=== PATIENT | male | born 1935 | race Caucasian/White ===

== ENCOUNTER → 2019-03-11 | Outpatient (CLI) | payer MEDICARE ==
--- NOTE | 2019-03-11 10:30 | CT ---
EXAMINATION TYPE: CT sinus wo con DATE OF EXAM: 03/11/2019 COMPARISON: None HISTORY: 83-year-old male Chronic sinusitis CT DLP: 551.60 mGycm Automated exposure control for dose reduction was used. TECHNIQUE: Noncontrast axial views of the paranasal sinuses were obtained. Coronal reconstructions pe rformed. FINDINGS: PARANASAL SINUSES: Moderate to severe mucosal thickening right maxillary sinus with some frothy debris present dependent ly. Mild mucosal thickening throughout the frontal sinuses, ethmoid air cells, and bilateral sphenoid sin uses. 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 There is no destruction of the osseous rodrigues of the paranasal sinuses. THE NASAL CAVITY: The osteomeatal complexes are widely patent with prior medial maxillary antrectomies. Minimal undulation of the nasal septum towards the left. The imaged brain and orbits are normal in appearance. The visualized mastoid air cells and middle ear cavities are well pneumatized. Reformatted images confirm above findings. IMPRESSION: 1. Previous bilateral medial maxillary antrectomies. 2. 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 Some frothy dependent debris within current represent superimposed acute sinusitis. 3. Mild chronic conteh sinus disease with mucosal thickening throughout the remainder of the sinuses.
--- NOTE | 2019-03-13 18:42 | EEG ---
ELECTROENCEPHALOGRAM REPORT VNG REPORT: REQUEST PHYSICIAN: Dr. Hardin. DATE OF SERVICE: 03/11/2019 VIDEO ELECTRONYSTAGMOGRAPHIC REPORT: AGE: 83 VNG INDICATIONS: VNG indications: Vertigo and dizziness. ENG FINDINGS: SPONTANEOUS NYSTAGMUS: SACCADES: Saccades shows intact peak velocities, accuracies and latencies. GAZE TEST: Gaze with fixation shows no nystagmus in any of the directions of gaze including centrally with vision denied. SINUSOIDAL TRACKING: Tracking shows borderline to mild break-ups of a consistent nature. OKN TEST: Optokinetic nystagmus shows borderline asymmetry. TAMMI-HALLPIKE TEST: Republic-Hallpike maneuvers were not performed due to limited mobility. POSITION TEST: Static position testing in seated, supine, head right and head left showed no nystagmus either with eyes opened or vision denied. CALORIC TEST: Caloric testing shows no caloric weakness. IMPRESSION: Mild break ups in tracking and a borderline asymmetry of optokinetic nystagmus are features suggesting mild central nervous system dysfunction. No evidence for vestibulopathy or caloric weakness. Tammi-Hallpike maneuvers not performed and so benign positional vertigo not excluded. No nystagmus encountered during the exam. MMODL / IJN: [id number] /
== END | disposition home or self-care (01) ==
LOC: RADCTMAIN 08:21
PROVIDERS: ATTEND Otolaryngology
DX: J32.0 Chronic maxillary sinusitis (principal); J01.90 Acute sinusitis, unspecified; J34.89 Other specified disorders of nose and nasal sinuses; R42 Dizziness and giddiness
CPT/HCPCS: 70486; 92537; 92540

== ENCOUNTER → 2019-04-01 | Outpatient (CLI) | payer MEDICARE ==
--- NOTE | 2019-04-01 19:51 | CONS ---
CONSULTATION DATE OF SERVICE: 04/01/2019. 83-year-old gentleman who has been evaluated in [facility] for possible obstructive sleep apnea-hypopnea syndrome. HISTORY OF PRESENT ILLNESS SLEEP WAKE EVALUATION: SLEEP SCHEDULE: Usual sleep schedule from around midnight until around 9 or 10 am. Sometimes he has problems with falling asleep, although no TV in bedroom. He sleeps usually on the side position. According to his , he snores and he wakes up from sleep 3 times with nocturia, dry mouth, heartburn. In the morning, patient wakes up tired, has difficulties to pay attention, falling asleep during the day, worry about his sleep, has problems with concentration, irritability, anxiety. Calypso Sleepiness Scale is 9. PAST MEDICAL HISTORY: Positive for atrial fibrillation, hypertension, hyperlipidemia, basal cell carcinoma of the nose. MEDICATIONS: Eliquis, Lipitor, lisinopril, metoprolol. SOCIAL HISTORY: Positive for occasional smoking cigars. Alcohol consumption none at the present time. PAST SURGICAL HISTORY: Status post basal cell carcinoma removed from skin of the nose recently. REVIEW OF SYSTEMS: Awakenings from sleep, tiredness and sleepiness during the day. FAMILY HISTORY: Arthritis, sinus problems, lung problems, sleep apnea, snoring, headaches, cancer, insomnia, ulcers, acid reflux. PHYSICAL EXAM: A gentleman without distress. BP 136/79, HR 56, RR 16, height 5 feet 7 inches, weight 218 pounds. Body mass index 33.6, temperature 98.0, oxygen saturation at room air 94%. Oropharynx extremely low position of soft palate. Mallampati 4. Restriction of nasal breathing. HEART: S1, S2, irregular. Extremities 1+ ankle edema. IMPRESSION: 1. Snoring, multiple awakenings from sleep with nocturia, extremely low position of soft palate. Obstructive sleep apnea-hypopnea syndrome. 2. Mild obesity BMI 33.6. 3. Hypertension. 4. History of atrial fibrillation. 5. Hyperlipidemia. 6. History of basal cell CA removed from the nose recently. 7. History of benign prostatic hypertrophy. PLAN: 1. Polysomnography for evaluation of patient's breathing during sleep. 2. CPAP/BiPAP titration if sleep study confirms obstructive sleep apnea-hypopnea syndrome. 3. Preferable position during sleep on the side. 4. No driving if patient feels any sleepiness. 5. I will see patient for follow up visit to explain results of testing and following plan. Thank you very much for referring this patient for consultation. Sincerely, Kunal Sharma MD, PhD, FAASM Diplomat of [place] [employer] [place] [employer] Blending Coordinator of [facility] [place] MMODL / ANITA: [id number] /
== END | disposition home or self-care (01) ==
LOC: SLEEP 13:33
PROVIDERS: ATTEND Internal Medicine
DX: G47.33 Obstructive sleep apnea (adult) (pediatric) (principal); E66.9 Obesity, unspecified; I10 Essential (primary) hypertension; E78.5 Hyperlipidemia, unspecified; R35.1 Nocturia; Z98.890 Other specified postprocedural states; Z86.79 Personal history of other diseases of the circulatory system; Z83.6 Family history of other diseases of the respiratory system; Z68.33 Body mass index [BMI] 33.0-33.9, adult; Z87.438 Personal history of other diseases of male genital organs; Z79.01 Long term (current) use of anticoagulants; Z79.899 Other long term (current) drug therapy
CPT/HCPCS: 99211

== ENCOUNTER → 2019-07-02 | Outpatient (CLI) | payer MEDICARE ==
--- NOTE | 2019-07-02 10:18 | MR ---
EXAMINATION TYPE: MR brain and iac wo/w con DATE OF EXAM: 07/02/2019 COMPARISON: CT 06/26/2013, 03/11/2019 HISTORY: Dizziness, Tinnitis, 30% Hearing loss bilat TECHNIQUE: Multiplanar, multisequence images of the brain and brainstem is performed without and with IV contras t, utilizing 10 mL intravenous Gadavist . Small iizog-cm-srix high-resolution images obtained through the internal auditory canals. FINDINGS: Diffusion weighted images demonstrate no evidence of a recent infarct or other diffusion ab normality. There is no extra-axial fluid. There is cortical atrophy. The ventricular system and cis ternal spaces are normal in size and appearance. Periventricular, subcortical and juxtacortical hyper intensities present on inversion recovery T2-weighted sequences. Pericallosal hyperintensity also pre sent with some minimal encephalomalacia noted in the centrum semiovale ovale on the right. Internal a uditory canals, cerebellopontine angles show no mass. Midline structures demonstrate normal morphology. The craniocervical junction appears within normal limits. Post contrast images demonstrate no abnormal enhancement. The dural venous sinuses appear pa tent. The visualized sinuses are remarkable for inflammatory change within the frontal sinus, maxilla ry sinuses, and the globes are intact. 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 IMPRESSION: Age-related changes of atrophy and chronic small vessel ischemia. Sinus disease. No evide nt mass along the internal auditory canals. Additional findings above.
== END | disposition home or self-care (01) ==
LOC: RADMRIMAIN 08:55
PROVIDERS: ATTEND Otolaryngology
DX: G31.1 Senile degeneration of brain, not elsewhere classified (principal); I67.82 Cerebral ischemia; J32.9 Chronic sinusitis, unspecified; H93.3X9 Disorders of unspecified acoustic nerve; H93.19 Tinnitus, unspecified ear
CPT/HCPCS: 70553; A9585

== ENCOUNTER 2020-07-09 01:08 | Emergency (ER) | payer MEDICARE ==
[2020-07-09 01:14] VITALS: BP 111/77; PULSE 87; RESP 16; TEMP 99
[2020-07-09 02:00] LABS: Basophils % (A) 0 %; Eosinophils # (A) 0.4 k/uL (0-0.7); Eosinophils % (A) 5 %; HCT 53.5 % (39.0-53.0); HGB 17.4 gm/dL (13.0-17.5); Lymphocytes # (A) 0.9 k/uL (1.0-4.8); Lymphocytes % (A) 12 %; MCH 32.4 pg (25.0-35.0); MCHC 32.5 g/dL (31.0-37.0); MCV 99.4 fL (80.0-100.0); Macrocytosis Slight; Mean Platelet Volume 9.6; Monocytes # (A) 0.4 k/uL (0-1.0); Monocytes % (A) 5 %; Neutrophils % (A) 77 %; Platelet Count 140 k/uL (150-450); RBC 5.38 m/uL (4.30-5.90); RDW 15.1 % (11.5-15.5); WBC 7.9 k/uL (3.8-10.6)
--- NOTE | 2020-07-09 02:07 | ED ---
Recheck HPI - General Chief Complaint: Recheck/Abnormal Lab/Rx Stated Complaint: Abnormal Labs Time Seen by Provider: 07/09/20 01:23 Source: patient Mode of arrival: ambulatory Limitations: no limitations - History of Present Illness Initial Comments: This patient is an 84-year-old man who presents to have his potassium checked. The patient had gone to the clinic yesterday at 10 AM and had labs taken as part of workup for pain with urination and also vertigo. He states that he received a call around midnight telling him that his potassium was 7 and that he needed to be checked at the emergency department. Patient states that he had otherwise been feeling okay. No weakness. No chest pain or dyspnea. No palpitations. MD Complaint: abnormal lab -: hour(s) Returns Today for: Called Because of Abnormal Lab/Test Symptoms Since Prior Visit: no new symptoms Context: called for abnormal lab result Associated Symptoms: none - Related Data Home Medications Medication Instructions Recorded Confirmed Antiarthritic Combination No.2 900 mg PO DAILY 06/05/14 08/12/17 [Glucosamine-Chondroitin] Cholecalciferol [Vitamin D3 (25 5,000 unit PO DAILY 06/05/14 08/12/17 Mcg = 1000 Iu)] Cyanocobalamin [Vitamin B-12] 500 mcg PO DAILY 06/05/14 08/12/17 [place]-3 Fatty Acids/Fish Oil [Fish 1 cap PO DAILY 06/05/14 08/12/17 Oil 1,000 mg Softgel] Doxazosin Mesylate [Cardura] 8 mg PO HS 01/24/17 08/12/17 Omeprazole [PriLOSEC] 40 mg PO DAILY 01/24/17 08/12/17 Previous Rx's Medication Instructions Recorded Apixaban [Eliquis] 5 mg PO BID tab 01/27/17 Atorvastatin [Lipitor] 80 mg PO DAILY tab 01/27/17 Diltiazem Oral [Cardizem*] 30 mg PO TID tab 01/27/17 Metoprolol Tartrate [Lopressor] 50 mg PO BID tab 01/27/17 Nitroglycerin Sl Tabs [Nitrostat] 0.4 mg SUBLINGUAL Q5M PRN tab 01/27/17 lisinopriL [Zestril] 5 mg PO DAILY tab 01/27/17 Allergies Allergy/AdvReac Type Severity Reaction Status Date / Time No Known Allergies Allergy Verified 07/09/20 01:15 Review of Systems ROS Statement: Those systems with pertinent positive or pertinent negative responses have been documented in the HPI. ROS Other: All systems not noted in ROS Statement are negative. Constitutional: Denies: fever, chills Eyes: Denies: vision change Respiratory: Denies: cough, dyspnea Cardiovascular: Denies: chest pain, palpitations, orthopnea Gastrointestinal: Denies: abdominal pain, vomiting, diarrhea Genitourinary: Reports: dysuria, hematuria. Denies: frequency, discharge, testicular pain, testicular mass Musculoskeletal: Denies: back pain Skin: Denies: rash Neurological: Reports: vertigo. Denies: headache, weakness, numbness Past Medical History Past Medical History: Atrial Fibrillation, GERD/Reflux, Hyperlipidemia, Hypertension, Osteoarthritis (OA), Prostate Disorder Additional Past Medical History / Comment(s): SKIN CA, pre-diabetes History of Any Multi-Drug Resistant Organisms: None Reported Past Surgical History: Cholecystectomy, Tonsillectomy Additional Past Surgical History / Comment(s): COLONOSCOPIES/POLYPECTOMY, TURP, CYSTOSCOPY FOR BLADDER CALCULUS REMOVAL, L INGUINAL HERNIA REPAIR, L FOOT FASCIOTOMY, ENDOSCOPIC SINUS SX, SKIN CANCER REMOVED FROM NOSE, BILATERAL CATARACT REMOVAL WITH LENS IMPLANTS. Past Anesthesia/Blood Transfusion Reactions: No Reported Reaction Past Psychological History: No Psychological Hx Reported Smoking Status: Former smoker Past Alcohol Use History: None Reported Past Drug Use History: None Reported - Past Family History Father Additional Family Medical History / Comment(s): FATHER AT THE AGE OF 75 YRS UNKNOWN CAUSE. FATHER HAD STOMACH ISSUES. Mother Family Medical History: Cancer Additional Family Medical History / Comment(s): MOTHER OF BREAST CANCER THAT METASTASIZED TO HER BONES AT THE AGE OF 80YRS. General Exam Limitations: no limitations General appearance: alert, in no apparent distress Head exam: Present: atraumatic, normocephalic Eye exam: Present: normal appearance. Absent: scleral icterus, conjunctival injection ENT exam: Present: normal oropharynx Respiratory exam: Present: normal lung sounds bilaterally. Absent: respiratory distress, wheezes, rales, rhonchi, stridor Cardiovascular Exam: Present: regular rate, normal rhythm, normal heart sounds. Absent: systolic murmur, diastolic murmur, rubs, gallop GI/Abdominal exam: Present: soft. Absent: distended, tenderness, guarding, rebound, rigid, mass Extremities exam: Present: normal inspection, normal capillary refill Neurological exam: Present: alert. Absent: motor sensory deficit Skin exam: Present: warm, dry, intact, normal color. Absent: rash Course Vital Signs 07/09/20 01:09 Temperature 99.0 F Pulse Rate 87 Respiratory 16 Rate Blood Pressure 111/77 O2 Sat by Pulse 93 L Oximetry Medical Decision Making - Lab Data Result diagrams: 07/09/20 01:50 07/09/20 01:50 Lab Results 07/09/20 07/09/20 Range/Units 01:50 01:50 WBC 7.9 (3.8-10.6) k/uL RBC 5.38 (4.30-5.90) m/uL Hgb 17.4 (13.0-17.5) gm/dL Hct 53.5 H (39.0-53.0) % MCV 99.4 (80.0-100.0) fL MCH 32.4 (25.0-35.0) pg MCHC 32.5 (31.0-37.0) g/dL RDW 15.1 (11.5-15.5) % Plt Count 140 L (150-450) k/uL MPV 9.6 Neutrophils % 77 % Lymphocytes % 12 % Monocytes % 5 % Eosinophils % 5 % Basophils % 0 % Neutrophils # 6.0 (1.3-7.7) k/uL Lymphocytes # 0.9 L (1.0-4.8) k/uL Monocytes # 0.4 (0-1.0) k/uL Eosinophils # 0.4 (0-0.7) k/uL Basophils # 0.0 (0-0.2) k/uL Macrocytosis Slight Sodium 136 L (137-145) mmol/L Potassium 4.3 (3.5-5.1) mmol/L Chloride 104 (98-107) mmol/L Carbon Dioxide 26 (22-30) mmol/L Anion Gap 6 mmol/L BUN 15 (9-20) mg/dL Creatinine 1.14 (0.66-1.25) mg/dL Est GFR (CKD-EPI)AfAm 68 (>60 ml/min/1.73 sqM) Est GFR (CKD-EPI)NonAf 59 (>60 ml/min/1.73 sqM) Glucose 112 H (74-99) mg/dL Calcium 9.4 (8.4-10.2) mg/dL Total Bilirubin 1.1 (0.2-1.3) mg/dL AST 38 (17-59) U/L ALT 44 (4-49) U/L Alkaline Phosphatase 92 (38-126) U/L Total Protein 6.6 (6.3-8.2) g/dL Albumin 3.6 (3.5-5.0) g/dL - EKG Data -: EKG Interpreted by Or EKG shows normal: intervals (Normal), QRS complexes (Left anterior fascicular block.) Rate: tachycardia (Rate approximately 119 bpm) Interpretation: other (Atrial fibrillation with RVR. Possible old septal infarct.) Disposition Clinical Impression: Feared condition not demonstrated Disposition: HOME SELF-CARE Condition: Good Instructions (If sedation given, give patient instructions): Hyperkalemia (ED) Is patient prescribed a controlled substance at d/c from ED?: No Referrals: Maryanne Henson MD [Primary Care Provider] - 1-2 days
[2020-07-09 02:15] LABS: Albumin 3.6 g/dL (3.5-5.0); Calcium 9.4 mg/dL (8.4-10.2); Potassium 4.3 mmol/L (3.5-5.1); Total Bilirubin 1.1 mg/dL (0.2-1.3); Total Protein 6.6 g/dL (6.3-8.2)
== END 2020-07-09 02:36 | disposition home or self-care (01) ==
LOC: EC 01:08
DX: Z71.1 Person with feared health complaint in whom no diagnosis is made (principal); R42 Dizziness and giddiness; R30.9 Painful micturition, unspecified; R31.9 Hematuria, unspecified; R30.0 Dysuria; I48.91 Unspecified atrial fibrillation; K21.9 Gastro-esophageal reflux disease without esophagitis; E78.5 Hyperlipidemia, unspecified; I10 Essential (primary) hypertension; M19.90 Unspecified osteoarthritis, unspecified site; Z87.891 Personal history of nicotine dependence
CPT/HCPCS: 36415; 80053; 85025; 93005; 99284

== ENCOUNTER 2020-09-23 20:25 | Emergency (ER) | payer MEDICARE ==
[2020-09-23 20:36] VITALS: TEMP 98.2
[2020-09-23] MEDS ORDERED: SODIUM CHLORIDE 0.9% 1,000 ML IV STA ×2 (21:22→23:30)
[2020-09-23] MEDS ORDERED: MORPHINE SULFATE 4 MG/ML SYRINGE IV STA (21:22)
[2020-09-23] MEDS ORDERED: ONDANSETRON 4 MG/2 ML VIAL IVP STA (21:22)
[2020-09-23 21:47] LABS: Appearance,Urine Clear (Clear); Bilirubin,Urine Negative (Negative); Blood,Urine Small (Negative); Color,Urine Yellow; Glucose,Urine (UA) Negative (Negative); Ketones,Urine Negative (Negative); Leukocyte Esterase,Urine Moderate (Negative); Mucus,Urine Rare /hpf; Nitrite,Urine Negative (Negative); Protein,Urine Trace (Negative); RBC,Urine 6 /hpf (0-5); Specific Gravity,Urine 1.013 (1.001-1.035); Urobilinogen,Urine <2.0 mg/dL (<2.0); WBC,Urine 15 /hpf (0-5)
[2020-09-23 21:52] LABS: Basophils % (A) 0 %; Eosinophils % (A) 0 %; HCT 53.7 % (39.0-53.0); HGB 17.8 gm/dL (13.0-17.5); Lymphocytes # (A) 0.9 k/uL (1.0-4.8); Lymphocytes % (A) 14 %; MCH 34.5 pg (25.0-35.0); MCHC 33.2 g/dL (31.0-37.0); Macrocytosis Slight; Mean Platelet Volume 9.3; Monocytes # (A) 0.3 k/uL (0-1.0); Monocytes % (A) 5 %; Neutrophils # (A) 5.3 k/uL (1.3-7.7); Neutrophils % (A) 79 %; Platelet Count 126 k/uL (150-450); RBC 5.16 m/uL (4.30-5.90); RDW 14.5 % (11.5-15.5); WBC 6.7 k/uL (3.8-10.6)
--- NOTE | 2020-09-23 21:59 | ED ---
Abdominal Pain HPI - General Chief Complaint: Abdominal Pain Stated Complaint: vomiting,abd pain Time Seen by Provider: 09/23/20 21:19 Source: patient, RN notes reviewed, old records reviewed Mode of arrival: ambulatory Limitations: no limitations - History of Present Illness Initial Comments: This is an 84-year-old male DF for evaluation. Patient presents with nausea vomiting abdominal uneasiness abdominal pain. Belly pain. Patient has no fevers. No similar history of the same. Symptoms of been of the day and worsened tonight. Has history of colonoscopy no history of surgery MD Complaint: abdominal pain -: hour(s) Location: periumbilical, LLQ Radiation: LLQ, L flank Migration to: LLQ Severity: severe Severity scale (1-10): 8 Quality: cramping, stabbing Consistency: constant Improves With: nothing Worsens With: nothing Associated Symptoms: nausea, vomiting Treatments Prior to Arrival: NSAIDs - Related Data Home Medications Medication Instructions Recorded Confirmed Antiarthritic Combination No.2 900 mg PO DAILY 06/05/14 09/23/20 [Glucosamine-Chondroitin] Arthrozene 1 tab PO DAILY 09/23/20 09/23/20 Furosemide [Lasix] 20 mg PO DAILY 09/23/20 09/23/20 Glucosamine HCl/Chondroitin [place] 1 cap PO DAILY 09/23/20 09/23/20 [Glucosamine-Chondroitin Cap] Metoprolol Succinate [Toprol XL] 75 mg PO DAILY 09/23/20 09/23/20 Multivitamins, Thera [Multivitamin 1 tab PO DAILY 09/23/20 09/23/20 (formulary)] Tamsulosin [Flomax] 0.4 mg PO DAILY 09/23/20 09/23/20 Previous Rx's Medication Instructions Recorded Apixaban [Eliquis] 5 mg PO BID tab 01/27/17 Atorvastatin [Lipitor] 80 mg PO DAILY tab 01/27/17 Nitroglycerin Sl Tabs [Nitrostat] 0.4 mg SUBLINGUAL Q5M PRN tab 01/27/17 Allergies Allergy/AdvReac Type Severity Reaction Status Date / Time No Known Allergies Allergy Verified 09/23/20 22:14 Review of Systems ROS Statement: Those systems with pertinent positive or pertinent negative responses have been documented in the HPI. ROS Other: All systems not noted in ROS Statement are negative. Past Medical History Past Medical History: Atrial Fibrillation, GERD/Reflux, Hyperlipidemia, Hypertension, Osteoarthritis (OA), Prostate Disorder Additional Past Medical History / Comment(s): SKIN CA, pre-diabetes History of Any Multi-Drug Resistant Organisms: None Reported Past Surgical History: Cholecystectomy, Tonsillectomy Additional Past Surgical History / Comment(s): COLONOSCOPIES/POLYPECTOMY, TURP, CYSTOSCOPY FOR BLADDER CALCULUS REMOVAL, L INGUINAL HERNIA REPAIR, L FOOT FASCIOTOMY, ENDOSCOPIC SINUS SX, SKIN CANCER REMOVED FROM NOSE, BILATERAL CATARACT REMOVAL WITH LENS IMPLANTS. Past Anesthesia/Blood Transfusion Reactions: No Reported Reaction Past Psychological History: No Psychological Hx Reported Smoking Status: Former smoker Past Alcohol Use History: None Reported Past Drug Use History: None Reported - Past Family History Father Additional Family Medical History / Comment(s): FATHER AT THE AGE OF 75 YRS UNKNOWN CAUSE. FATHER HAD STOMACH ISSUES. Mother Family Medical History: Cancer Additional Family Medical History / Comment(s): MOTHER OF BREAST CANCER THAT METASTASIZED TO HER BONES AT THE AGE OF 80YRS. General Exam Limitations: no limitations General appearance: alert, in no apparent distress, anxious Head exam: Present: atraumatic, normocephalic, normal inspection Eye exam: Present: normal appearance, PERRL, EOMI. Absent: scleral icterus, conjunctival injection, periorbital swelling ENT exam: Present: normal exam, mucous membranes moist Neck exam: Present: normal inspection. Absent: tenderness, meningismus, lymphadenopathy Respiratory exam: Present: normal lung sounds bilaterally. Absent: respiratory distress, wheezes, rales, rhonchi, stridor Cardiovascular Exam: Present: regular rate, normal rhythm, normal heart sounds. Absent: systolic murmur, diastolic murmur, rubs, gallop, clicks GI/Abdominal exam: Present: soft, normal bowel sounds. Absent: distended, tenderness, guarding, rebound, rigid Extremities exam: Present: normal inspection, full ROM, normal capillary refill. Absent: tenderness, pedal edema, joint swelling, calf tenderness Back exam: Present: normal inspection Neurological exam: Present: alert, oriented X3, CN II-XII intact Psychiatric exam: Present: normal affect, normal mood Skin exam: Present: warm, dry, intact, normal color. Absent: rash Course Vital Signs 09/23/20 09/23/20 20:34 23:30 Temperature 98.2 F Pulse Rate 78 113 H Respiratory 20 18 Rate Blood Pressure 175/109 163/130 O2 Sat by Pulse 95 87 L Oximetry - Reevaluation(s) Reevaluation #1: 09/23/20 23:12 Medical records reviewed Reevaluation #2: 09/23/20 23:12 Patient symptoms are improved here in the ER Reevaluation #3: 09/24/20 00:15 Patient currently not significant improved although he does feel better symptomatically still feels weak - Consultations Consultation #1: Spoke with patient's oncologist who agrees to obstipation Medical Decision Making - Medical Decision Making 84 male D to the ER F for evaluation of weakness and chills abdominal pain nausea vomiting and diarrhea. Patient is leukopenic with chills, patient be admitted rule out bacteremia - Lab Data Result diagrams: 09/23/20 21:24 09/23/20 10:10 Lab Results 09/23/20 09/23/20 09/23/20 Range/Units 10:10 10:10 21:24 WBC 6.7 (3.8-10.6) k/uL RBC 5.16 (4.30-5.90) m/uL Hgb 17.8 H (13.0-17.5) gm/dL Hct 53.7 H (39.0-53.0) % MCV 104.0 H (80.0-100.0) fL MCH 34.5 (25.0-35.0) pg MCHC 33.2 (31.0-37.0) g/dL RDW 14.5 (11.5-15.5) % Plt Count 126 L (150-450) k/uL MPV 9.3 Neutrophils % 79 % Lymphocytes % 14 % Monocytes % 5 % Eosinophils % 0 % Basophils % 0 % Neutrophils # 5.3 (1.3-7.7) k/uL Lymphocytes # 0.9 L (1.0-4.8) k/uL Monocytes # 0.3 (0-1.0) k/uL Eosinophils # 0.0 (0-0.7) k/uL Basophils # 0.0 (0-0.2) k/uL Macrocytosis Slight Sodium 140 (137-145) mmol/L Potassium 4.3 (3.5-5.1) mmol/L Chloride 112 H (98-107) mmol/L Carbon Dioxide 19 L (22-30) mmol/L Anion Gap 9 mmol/L BUN 18 (9-20) mg/dL Creatinine 1.15 (0.66-1.25) mg/dL Est GFR (CKD-EPI)AfAm 68 (>60 ml/min/1.73 sqM) Est GFR (CKD-EPI)NonAf 59 (>60 ml/min/1.73 sqM) Glucose 143 H (74-99) mg/dL Plasma Lactic Acid Luis Daniel (0.7-2.0) mmol/L Calcium 9.2 (8.4-10.2) mg/dL Total Bilirubin 0.8 (0.2-1.3) mg/dL AST 37 (17-59) U/L ALT 35 (4-49) U/L Alkaline Phosphatase 89 (38-126) U/L Creatine Kinase 72 (55-170) U/L Troponin I <0.012 (0.000-0.034) ng/mL Total Protein 6.8 (6.3-8.2) g/dL Albumin 3.8 (3.5-5.0) g/dL Amylase 87 (30-110) U/L Lipase 56 (23-300) U/L Urine Color Urine Appearance (Clear) Urine pH (5.0-8.0) Ur Specific [place] (1.001-1.035) Urine Protein (Negative) Urine Glucose (UA) (Negative) Urine Ketones (Negative) Urine Blood (Negative) Urine Nitrite (Negative) Urine Bilirubin (Negative) Urine Urobilinogen (<2.0) mg/dL Ur Leukocyte Esterase (Negative) Urine RBC (0-5) /hpf Urine WBC (0-5) /hpf Urine Mucus (None) /hpf 09/23/20 09/23/20 Range/Units 21:24 21:24 WBC (3.8-10.6) k/uL RBC (4.30-5.90) m/uL Hgb (13.0-17.5) gm/dL Hct (39.0-53.0) % MCV (80.0-100.0) fL MCH (25.0-35.0) pg MCHC (31.0-37.0) g/dL RDW (11.5-15.5) % Plt Count (150-450) k/uL MPV Neutrophils % % Lymphocytes % % Monocytes % % Eosinophils % % Basophils % % Neutrophils # (1.3-7.7) k/uL Lymphocytes # (1.0-4.8) k/uL Monocytes # (0-1.0) k/uL Eosinophils # (0-0.7) k/uL Basophils # (0-0.2) k/uL Macrocytosis Sodium (137-145) mmol/L Potassium (3.5-5.1) mmol/L Chloride (98-107) mmol/L Carbon Dioxide (22-30) mmol/L Anion Gap mmol/L BUN (9-20) mg/dL Creatinine (0.66-1.25) mg/dL Est GFR (CKD-EPI)AfAm (>60 ml/min/1.73 sqM) Est GFR (CKD-EPI)NonAf (>60 ml/min/1.73 sqM) Glucose (74-99) mg/dL Plasma Lactic Acid Luis Daniel 1.5 (0.7-2.0) mmol/L Calcium (8.4-10.2) mg/dL Total Bilirubin (0.2-1.3) mg/dL AST (17-59) U/L ALT (4-49) U/L Alkaline Phosphatase (38-126) U/L Creatine Kinase (55-170) U/L Troponin I (0.000-0.034) ng/mL Total Protein (6.3-8.2) g/dL Albumin (3.5-5.0) g/dL Amylase (30-110) U/L Lipase (23-300) U/L Urine Color Yellow Urine Appearance Clear (Clear) Urine pH 5.0 (5.0-8.0) Ur Specific [place] 1.013 (1.001-1.035) Urine Protein Trace H (Negative) Urine Glucose (UA) Negative (Negative) Urine Ketones Negative (Negative) Urine Blood Small H (Negative) Urine Nitrite Negative (Negative) Urine Bilirubin Negative (Negative) Urine Urobilinogen <2.0 (<2.0) mg/dL Ur Leukocyte Esterase Moderate H (Negative) Urine RBC 6 H (0-5) /hpf Urine WBC 15 H (0-5) /hpf Urine Mucus Rare H (None) /hpf - EKG Data -: EKG Interpreted by Me (EKG is A. fib with RVR 117 QRS 14 QTc 477) - Radiology Data Radiology results: report reviewed (CT head and pelvis negative for acute disease chest x-ray is pending), image reviewed Disposition Clinical Impression: Leukopenia, Abdominal pain Disposition: ADMITTED IP TO THIS HOSP Condition: Good Is patient prescribed a controlled substance at d/c from ED?: No Referrals: Maryanne Henson MD [Primary Care Provider] - 1-2 days
[2020-09-23 22:34] LABS: Albumin 3.8 g/dL (3.5-5.0); Calcium 9.2 mg/dL (8.4-10.2); Potassium 4.3 mmol/L (3.5-5.1); Total Bilirubin 0.8 mg/dL (0.2-1.3); Total Protein 6.8 g/dL (6.3-8.2)
--- NOTE | 2020-09-23 23:12 | CT ---
EXAMINATION TYPE: CT abdomen pelvis w con DATE OF EXAM: 09/23/2020 COMPARISON: None HISTORY: abd pain CT DLP: 1446.3 mGycm Automated exposure control for dose reduction was used. CONTRAST: Performed with IV Contrast, patient injected with 80 mL of Isovue 300. Images obtained from the diaphragm to the floor the pelvis with IV contrast. There is some interstitial moderate infiltrate at the lung bases. Heart is enlarged. There is mild pe ricardial effusion. There is irregular 2.7 cm hypodense area in the inferior right lobe of the liver. There is 10 mm roun ded hypodensity in the lateral right lobe of the liver. There are clips from cholecystectomy. The sto mach is intact. Spleen is intact. There is no evidence of pancreatic mass. The bile ducts are not dil ated. There is no adrenal mass. Kidneys have normal size. There is left-sided hydronephrosis and extensive perinephric edema. There is minimal right-sided perinephric edema. There is left-sided hydroureter wi th 7 mm obstructing calculus at the left ureterovesical junction. Bladder distends smoothly. There is no inguinal hernia. There is 5 cm cystic fluid collection in the pelvis consistent with bladder dive rticulum on the right side of the urinary bladder. There is no ascites. There is no free air. There are multiple sigmoid diverticula. I see no sign of d iverticulitis. The appendix extends laterally and appears normal. The cecum is somewhat medial. The lumbar vertebra have normal alignment. There is no compression fracture. Posterior elements are i ntact. The hip joints are intact. There is no hip dysplasia. IMPRESSION: Obstructing calculus at the left ureterovesical junction with left-sided hydronephrosis and hydrouret er. Normal appendix. Hypodense liver lesions. These are nonspecific. Ultrasound would be helpful to further characterize t hese. Cardiomegaly with pericardial effusion. Interstitial infiltrates at the lung bases. Congestive heart failure is possible.
[2020-09-23] MEDS ORDERED: KETOROLAC 15 MG/ML 1 ML VIAL IVP STA (23:30)
[2020-09-23] MEDS ORDERED: TAMSULOSIN 0.4 MG CAP.ER.24H PO STA (23:30)
[2020-09-23] MEDS ORDERED: METOPROLOL TARTRATE 5 MG/5 ML VIAL IVP STA (23:30)
[2020-09-23 23:31] VITALS: RESP 18
[2020-09-24] MEDS ORDERED: NITROGLYCERIN SL TABS 0.4 MG TAB SUBLINGUAL PRN (00:16)
--- NOTE | 2020-09-24 00:20 | ED ---
Medical Decision Making - Medical Decision Making Medical decision-making of last chart was put on the wrong chart this is addendum 84 male to the ER for evaluation abdominal pain left-sided flank pain. Patient does have positive kidney stone. Patient's pain is controlled here in the ER also found to be in atrial fibrillation with RVR which is improved here in the ER. Patient feels good for discharge home - Lab Data Result diagrams: 09/23/20 21:24 09/23/20 10:10 Lab Results 09/23/20 09/23/20 09/23/20 Range/Units 10:10 10:10 21:24 WBC 6.7 (3.8-10.6) k/uL RBC 5.16 (4.30-5.90) m/uL Hgb 17.8 H (13.0-17.5) gm/dL Hct 53.7 H (39.0-53.0) % MCV 104.0 H (80.0-100.0) fL MCH 34.5 (25.0-35.0) pg MCHC 33.2 (31.0-37.0) g/dL RDW 14.5 (11.5-15.5) % Plt Count 126 L (150-450) k/uL MPV 9.3 Neutrophils % 79 % Lymphocytes % 14 % Monocytes % 5 % Eosinophils % 0 % Basophils % 0 % Neutrophils # 5.3 (1.3-7.7) k/uL Lymphocytes # 0.9 L (1.0-4.8) k/uL Monocytes # 0.3 (0-1.0) k/uL Eosinophils # 0.0 (0-0.7) k/uL Basophils # 0.0 (0-0.2) k/uL Macrocytosis Slight Sodium 140 (137-145) mmol/L Potassium 4.3 (3.5-5.1) mmol/L Chloride 112 H (98-107) mmol/L Carbon Dioxide 19 L (22-30) mmol/L Anion Gap 9 mmol/L BUN 18 (9-20) mg/dL Creatinine 1.15 (0.66-1.25) mg/dL Est GFR (CKD-EPI)AfAm 68 (>60 ml/min/1.73 sqM) Est GFR (CKD-EPI)NonAf 59 (>60 ml/min/1.73 sqM) Glucose 143 H (74-99) mg/dL Plasma Lactic Acid Luis Daniel (0.7-2.0) mmol/L Calcium 9.2 (8.4-10.2) mg/dL Total Bilirubin 0.8 (0.2-1.3) mg/dL AST 37 (17-59) U/L ALT 35 (4-49) U/L Alkaline Phosphatase 89 (38-126) U/L Creatine Kinase 72 (55-170) U/L Troponin I <0.012 (0.000-0.034) ng/mL Total Protein 6.8 (6.3-8.2) g/dL Albumin 3.8 (3.5-5.0) g/dL Amylase 87 (30-110) U/L Lipase 56 (23-300) U/L Urine Color Urine Appearance (Clear) Urine pH (5.0-8.0) Ur Specific [place] (1.001-1.035) Urine Protein (Negative) Urine Glucose (UA) (Negative) Urine Ketones (Negative) Urine Blood (Negative) Urine Nitrite (Negative) Urine Bilirubin (Negative) Urine Urobilinogen (<2.0) mg/dL Ur Leukocyte Esterase (Negative) Urine RBC (0-5) /hpf Urine WBC (0-5) /hpf Urine Mucus (None) /hpf 09/23/20 09/23/20 Range/Units 21:24 21:24 WBC (3.8-10.6) k/uL RBC (4.30-5.90) m/uL Hgb (13.0-17.5) gm/dL Hct (39.0-53.0) % MCV (80.0-100.0) fL MCH (25.0-35.0) pg MCHC (31.0-37.0) g/dL RDW (11.5-15.5) % Plt Count (150-450) k/uL MPV Neutrophils % % Lymphocytes % % Monocytes % % Eosinophils % % Basophils % % Neutrophils # (1.3-7.7) k/uL Lymphocytes # (1.0-4.8) k/uL Monocytes # (0-1.0) k/uL Eosinophils # (0-0.7) k/uL Basophils # (0-0.2) k/uL Macrocytosis Sodium (137-145) mmol/L Potassium (3.5-5.1) mmol/L Chloride (98-107) mmol/L Carbon Dioxide (22-30) mmol/L Anion Gap mmol/L BUN (9-20) mg/dL Creatinine (0.66-1.25) mg/dL Est GFR (CKD-EPI)AfAm (>60 ml/min/1.73 sqM) Est GFR (CKD-EPI)NonAf (>60 ml/min/1.73 sqM) Glucose (74-99) mg/dL Plasma Lactic Acid Luis Daniel 1.5 (0.7-2.0) mmol/L Calcium (8.4-10.2) mg/dL Total Bilirubin (0.2-1.3) mg/dL AST (17-59) U/L ALT (4-49) U/L Alkaline Phosphatase (38-126) U/L Creatine Kinase (55-170) U/L Troponin I (0.000-0.034) ng/mL Total Protein (6.3-8.2) g/dL Albumin (3.5-5.0) g/dL Amylase (30-110) U/L Lipase (23-300) U/L Urine Color Yellow Urine Appearance Clear (Clear) Urine pH 5.0 (5.0-8.0) Ur Specific [place] 1.013 (1.001-1.035) Urine Protein Trace H (Negative) Urine Glucose (UA) Negative (Negative) Urine Ketones Negative (Negative) Urine Blood Small H (Negative) Urine Nitrite Negative (Negative) Urine Bilirubin Negative (Negative) Urine Urobilinogen <2.0 (<2.0) mg/dL Ur Leukocyte Esterase Moderate H (Negative) Urine RBC 6 H (0-5) /hpf Urine WBC 15 H (0-5) /hpf Urine Mucus Rare H (None) /hpf - Radiology Data Radiology results: report reviewed (CT abdomen and pelvis is positive for kidney stone), image reviewed Disposition Clinical Impression: Abdominal pain, Left ureteral stone, Atrial fibrillation with RVR, Tachycardia, Atrial fibrillation, CHF (congestive heart failure) Disposition: ADMITTED IP TO THIS HOSP Condition: Good Is patient prescribed a controlled substance at d/c from ED?: No Referrals: Maryanne Henson MD [Primary Care Provider] - 1-2 days
[2020-09-24 00:23] VITALS: BP 156/120; PULSE 108
[2020-09-24] MEDS ORDERED: ACET/COD 300 MG/30 MG STARTER PACK 6 TAB BTL PO STA (00:24)
[2020-09-24] MEDS ORDERED: ONDANSETRON 4 MG ODT STARTER PACK 2 TAB BTL PO STA (00:24)
[2020-09-24] MEDS ORDERED: IBUPROFEN 600 MG STARTER PACK 4 TAB BTL PO STA (00:24)
[2020-09-24] MEDS ORDERED: APIXABAN 5 MG TAB PO SCH (00:30)
[2020-09-24] MEDS ORDERED: MULTIVITAMINS, THERA 1 EACH TAB PO SCH (09:00)
[2020-09-24] MEDS ORDERED: NON FORMULARY DRUG (Glucosamine Hcl/Chondroitin Su [Glucosamine-Chondroitin Cap] 1 EACH Ca PO SCH (09:00)
[2020-09-24] MEDS ORDERED: ANTIARTHRITIC COMBINATION NO 2 900 MG PO SCH (09:00)
[2020-09-24] MEDS ORDERED: TAMSULOSIN 0.4 MG CAP.ER.24H PO SCH (09:00)
[2020-09-24] MEDS ORDERED: ARTHROZENE PO SCH (09:00)
[2020-09-24] MEDS ORDERED: ATORVASTATIN 80 MG TAB PO SCH (09:00)
[2020-09-24] MEDS ORDERED: METOPROLOL SUCCINATE (ER) 25 MG TAB.ER.24H PO SCH (09:00)
[2020-09-24] MEDS ORDERED: FUROSEMIDE 20 MG TAB PO SCH (09:00)
== END 2020-09-24 00:42 | disposition other institution (70) ==
LOC: EC 20:25
DX: N13.2 Hydronephrosis with renal and ureteral calculous obstruction (principal); I48.91 Unspecified atrial fibrillation; D72.819 Decreased white blood cell count, unspecified; I11.0 Hypertensive heart disease with heart failure; I50.9 Heart failure, unspecified; E78.5 Hyperlipidemia, unspecified; K21.9 Gastro-esophageal reflux disease without esophagitis; M19.90 Unspecified osteoarthritis, unspecified site; Z87.891 Personal history of nicotine dependence; Z79.01 Long term (current) use of anticoagulants; Z79.899 Other long term (current) drug therapy; Z85.828 Personal history of other malignant neoplasm of skin; Z80.3 Family history of malignant neoplasm of breast; Z90.49 Acquired absence of other specified parts of digestive tract; Z90.79 Acquired absence of other genital organ(s)
CPT/HCPCS: 36415; 93005; 80053; 82150; 82550; 83605; 83690; 84484; 85025; 81001; 87086; 74177; 96374; 96375 ×3; 96361 ×2; 99285; J2270; J2405; J1885; S0119; Q9967

== ENCOUNTER 2020-10-24 05:08 | Inpatient (IN) | payer MEDICARE ==
--- NOTE | 2020-10-24 05:17 | ED ---
Weakness HPI - General Stated complaint: Weakness Time Seen by Provider: 10/24/20 05:10 - Related Data Home Medications Medication Instructions Recorded Confirmed Antiarthritic Combination No.2 900 mg PO DAILY 06/05/14 09/23/20 [Glucosamine-Chondroitin] Arthrozene 1 tab PO DAILY 09/23/20 09/23/20 Furosemide [Lasix] 20 mg PO DAILY 09/23/20 09/23/20 Glucosamine HCl/Chondroitin York 1 cap PO DAILY 09/23/20 09/23/20 [Glucosamine-Chondroitin Cap] Metoprolol Succinate [Toprol XL] 75 mg PO DAILY 09/23/20 09/23/20 Multivitamins, Thera [Multivitamin 1 tab PO DAILY 09/23/20 09/23/20 (formulary)] Tamsulosin [Flomax] 0.4 mg PO DAILY 09/23/20 09/23/20 Previous Rx's Medication Instructions Recorded Apixaban [Eliquis] 5 mg PO BID tab 01/27/17 Atorvastatin [Lipitor] 80 mg PO DAILY tab 01/27/17 Nitroglycerin Sl Tabs [Nitrostat] 0.4 mg SUBLINGUAL Q5M PRN tab 01/27/17 Allergies Allergy/AdvReac Type Severity Reaction Status Date / Time No Known Allergies Allergy Verified 09/23/20 22:14 Review of Systems ROS Statement: Those systems with pertinent positive or pertinent negative responses have been documented in the HPI. ROS Other: All systems not noted in ROS Statement are negative. Past Medical History Past Medical History: Atrial Fibrillation, GERD/Reflux, Hyperlipidemia, Hypertension, Osteoarthritis (OA), Prostate Disorder Additional Past Medical History / Comment(s): SKIN CA, pre-diabetes History of Any Multi-Drug Resistant Organisms: None Reported Past Surgical History: Cholecystectomy, Tonsillectomy Additional Past Surgical History / Comment(s): COLONOSCOPIES/POLYPECTOMY, TURP, CYSTOSCOPY FOR BLADDER CALCULUS REMOVAL, L INGUINAL HERNIA REPAIR, L FOOT FASCIOTOMY, ENDOSCOPIC SINUS SX, SKIN CANCER REMOVED FROM NOSE, BILATERAL CATARACT REMOVAL WITH LENS IMPLANTS. Past Anesthesia/Blood Transfusion Reactions: No Reported Reaction Past Psychological History: No Psychological Hx Reported Smoking Status: Former smoker Past Alcohol Use History: None Reported Past Drug Use History: None Reported - Past Family History Father Additional Family Medical History / Comment(s): FATHER AT THE AGE OF 75 YRS UNKNOWN CAUSE. FATHER HAD STOMACH ISSUES. Mother Family Medical History: Cancer Additional Family Medical History / Comment(s): MOTHER OF BREAST CANCER THAT METASTASIZED TO HER BONES AT THE AGE OF 80YRS. Course Vital Signs 10/24/20 10/24/20 05:28 05:38 Temperature 99 F Pulse Rate 113 H Pulse Rate [ 115 H [employer] ] Respiratory 18 Rate Blood Pressure 160/81 O2 Sat by Pulse 90 L Oximetry EKG Findings - EKG Comments: EKG Findings:: EKG is A. fib with RVR 107 QRS 112 QTC 485 Medical Decision Making - Lab Data Result diagrams: 10/24/20 05:27 10/24/20 05:27 Lab Results 10/24/20 10/24/20 10/24/20 Range/Units 05:27 05:27 05:27 WBC 6.3 (3.8-10.6) k/uL RBC 4.72 (4.30-5.90) m/uL Hgb 16.3 (13.0-17.5) gm/dL Hct 48.9 (39.0-53.0) % MCV 103.7 H (80.0-100.0) fL MCH 34.6 (25.0-35.0) pg MCHC 33.3 (31.0-37.0) g/dL RDW 14.2 (11.5-15.5) % Plt Count 115 L (150-450) k/uL MPV 8.7 Neutrophils % 68 % Lymphocytes % 23 % Monocytes % 5 % Eosinophils % 2 % Basophils % 1 % Neutrophils # 4.3 (1.3-7.7) k/uL Lymphocytes # 1.4 (1.0-4.8) k/uL Monocytes # 0.3 (0-1.0) k/uL Eosinophils # 0.1 (0-0.7) k/uL Basophils # 0.0 (0-0.2) k/uL Macrocytosis Slight PT 12.4 H (9.0-12.0) sec INR 1.2 H (<1.2) APTT 24.7 (22.0-30.0) sec D-Dimer 0.53 (<0.60) mg/L FEU Sodium 140 (137-145) mmol/L Potassium 3.8 (3.5-5.1) mmol/L Chloride 109 H (98-107) mmol/L Carbon Dioxide 21 L (22-30) mmol/L Anion Gap 10 mmol/L BUN 14 (9-20) mg/dL Creatinine 0.98 (0.66-1.25) mg/dL Est GFR (CKD-EPI)AfAm 82 (>60 ml/min/1.73 sqM) Est GFR (CKD-EPI)NonAf 71 (>60 ml/min/1.73 sqM) Glucose 132 H (74-99) mg/dL Calcium 9.2 (8.4-10.2) mg/dL Total Bilirubin 0.8 (0.2-1.3) mg/dL AST 28 (17-59) U/L ALT 24 (4-49) U/L Alkaline Phosphatase 78 (38-126) U/L Creatine Kinase 44 L (55-170) U/L Total Protein 6.4 (6.3-8.2) g/dL Albumin 3.3 L (3.5-5.0) g/dL Disposition Clinical Impression: Atrial fibrillation, Tachycardia, Near syncope, Unresponsive, Atrial fibrillation with RVR Disposition: ADMITTED IP TO THIS HOSP Condition: Fair Is patient prescribed a controlled substance at d/c from ED?: No Referrals: Maryanne Henson MD [Primary Care Provider] - 1-2 days
[2020-10-24 05:48] LABS: Basophils % (A) 1 %; Eosinophils # (A) 0.1 k/uL (0-0.7); Eosinophils % (A) 2 %; HCT 48.9 % (39.0-53.0); HGB 16.3 gm/dL (13.0-17.5); Lymphocytes # (A) 1.4 k/uL (1.0-4.8); Lymphocytes % (A) 23 %; MCH 34.6 pg (25.0-35.0); MCHC 33.3 g/dL (31.0-37.0); MCV 103.7 fL (80.0-100.0); Macrocytosis Slight; Mean Platelet Volume 8.7; Monocytes # (A) 0.3 k/uL (0-1.0); Monocytes % (A) 5 %; Neutrophils # (A) 4.3 k/uL (1.3-7.7); Neutrophils % (A) 68 %; Platelet Count 115 k/uL (150-450); RBC 4.72 m/uL (4.30-5.90); RDW 14.2 % (11.5-15.5); WBC 6.3 k/uL (3.8-10.6)
[2020-10-24 06:03] LABS: Albumin 3.3 g/dL (3.5-5.0); Calcium 9.2 mg/dL (8.4-10.2); Potassium 3.8 mmol/L (3.5-5.1); Total Bilirubin 0.8 mg/dL (0.2-1.3); Total Protein 6.4 g/dL (6.3-8.2)
[2020-10-24 06:09] LABS: INR 1.2 (<1.2); Partial Thromboplastin Time 24.7 sec (22.0-30.0); Prothrombin Time 12.4 sec (9.0-12.0)
[2020-10-24] MEDS ORDERED: NITROGLYCERIN SL TABS 0.4 MG TAB SUBLINGUAL PRN ×2 (06:11→09:46)
--- NOTE | 2020-10-24 06:21 | XR ---
EXAMINATION TYPE: XR chest 1V portable DATE OF EXAM: 10/24/2020 COMPARISON: 01/24/2017 HISTORY: Chest pain. Weakness TECHNIQUE: Single view FINDINGS: Heart appears slightly enlarged. There is no obvious heart failure. There is coarsening of the lung markings. Thoracic aorta is atheromatous. There is old right-sided healed rib fracture. Ther e is minimal blunting of the costophrenic angles. IMPRESSION: Small pleural effusions. No obvious heart failure. Pulmonary vascularity is improved comp ared to last exam. Mild cardiomegaly unchanged.
--- NOTE | 2020-10-24 06:30 | CT ---
EXAMINATION TYPE: CT brain wo con DATE OF EXAM: 10/24/2020 COMPARISON: None HISTORY: ams/weakness CT DLP: 1147.4 mGycm Automated exposure control for dose reduction was used. There is cerebral cortical atrophy. There is 13 mm high attenuation area on the left side of the ante rior cerebral falx with surrounding edema in the brain. Is not clear if this mass is intra-axial or e xtra-axial. This has contact with the cerebral falx. There is some hypodensity in the periventricular white matter. The calvarium is intact. There is norm al aeration of the mastoid sinuses. IMPRESSION: Mass adjacent to the cerebral falx on the left side with surrounding 4 cm area of cortical white j luis er edema. This is consistent with tumor and could be a meningioma with surrounding reaction. Intra-ax ial tumor not excluded. Contrast CT scan or MR scan would BE helpful for further evaluation if clinic ally indicated.
[2020-10-24] MEDS: SODIUM CHLORIDE 0.9% 1,000 ML IV SCH ×2 (06:47→17:35)
[2020-10-24 07:31] LABS: Appearance,Urine Clear (Clear); Bilirubin,Urine Negative (Negative); Blood,Urine Negative (Negative); Color,Urine Yellow; Glucose,Urine (UA) Negative (Negative); Ketones,Urine Negative (Negative); Leukocyte Esterase,Urine Small (Negative); Mucus,Urine Rare /hpf; Nitrite,Urine Negative (Negative); PH, Urine 5.5 (5.0-8.0); Protein,Urine Trace (Negative); RBC,Urine 2 /hpf (0-5); Specific Gravity,Urine 1.017 (1.001-1.035); Squamous Epithelial Cell,Urine <1 /hpf (0-4); Urobilinogen,Urine <2.0 mg/dL (<2.0); WBC,Urine 14 /hpf (0-5)
--- NOTE | 2020-10-24 08:51 | P.CRDCN ---
History of Present Illness Consult date: 10/24/20 Chief complaint: Change in mental status History of present illness: This is an 85-year-old gentleman with requested to see in the emergency depa rtment for further evaluation of change in mental status and possible syncope. The patient follows with Dr. Hastings regularly. He does have history of permanent atrial fibrillation on oral anticoagulation as well as history of hypertension. He went to sleep last night around 9:00 at night. His woke up around 3:00 after midnight to go to the bathroom when she heard the patient was breathing l oudly. She tried to wake up the patient but she was unable. According to her the patient was snoring significantly. She called ambulance. It took about 15 minutes for the ambulance to get home. When ambulance arrived to check the vital on the patient and they came in to be unremarkable. The patient was brought to the emergency department for further evaluation. Before this incident the patient was completely asymptomatic in terms of chest pain or chest discomfort or shortness of breath or any dizziness or lightheadedness or any episodes of presyncope or syncope. He had no history of TIA nor any history of stroke. He underwent a workup including EKG showing atrial fibrillation was re latively controlled heart rate and also he underwent a computed tomography scan of the brain which came in to be abnormal showing mass with cortical white matter edema. The mass according to the report is likely consistent with meningioma. Currently the patient is asymptomatic and he is hemodynamically stable. Past Medical History Past Medical History: Atrial Fibrillation, GERD/Reflux, Hyperlipidemia, Hypertension, Osteoarthritis (OA), Prostate Disorder Additional Past Medical History / Comment(s): SKIN CA, pre-diabetes History of Any Multi-Drug Resistant Organisms: None Reported Past Surgical History: Cholecystectomy, Tonsillectomy Additional Past Surgical History / Comment(s): COLONOSCOPIES/POLYPECTOMY, TURP, CYSTOSCOPY FOR BLADDER CALCULUS REMOVAL, L INGUINAL HERNIA REPAIR, L FOOT FASCIOTOMY, ENDOSCOPIC SINUS SX, SKIN CANCER REMOVED FROM NOSE, BILATERAL CATARACT REMOVAL WITH LENS IMPLANTS. Past Anesthesia/Blood Transfusion Reactions: No Reported Reaction Past Psychological History: No Psychological Hx Reported Smoking Status: Former smoker Past Alcohol Use History: None Reported Past Drug Use History: None Reported - Past Family History Father Additional Family Medical History / Comment(s): FATHER AT THE AGE OF 75 YRS UNKNOWN CAUSE. FATHER HAD STOMACH ISSUES. Mother Family Medical History: Cancer Additional Family Medical History / Comment(s): MOTHER OF BREAST CANCER THAT METASTASIZED TO HER BONES AT THE AGE OF 80YRS. Medications and Allergies Home Medications Medication Instructions Recorded Confirmed Type Antiarthritic Combination No.2 900 mg PO DAILY 06/05/14 09/23/20 History [Glucosamine-Chondroitin] Apixaban [Eliquis] 5 mg PO BID tab 01/27/17 09/23/20 Rx Atorvastatin [Lipitor] 80 mg PO DAILY tab 01/27/17 09/23/20 Rx Nitroglycerin Sl Tabs [Nitrostat] 0.4 mg SUBLINGUAL Q5M PRN tab 01/27/17 09/23/20 Rx Arthrozene 1 tab PO DAILY 09/23/20 09/23/20 History Furosemide [Lasix] 20 mg PO DAILY 09/23/20 09/23/20 History Glucosamine HCl/Chondroitin York 1 cap PO DAILY 09/23/20 09/23/20 History [Glucosamine-Chondroitin Cap] Metoprolol Succinate [Toprol XL] 75 mg PO DAILY 09/23/20 09/23/20 History Multivitamins, Thera [Multivitamin 1 tab PO DAILY 09/23/20 09/23/20 History (formulary)] Tamsulosin [Flomax] 0.4 mg PO DAILY 09/23/20 09/23/20 History Allergies Allergy/AdvReac Type Severity Reaction Status Date / Time No Known Allergies Allergy Verified 10/24/20 06:48 Physical Exam Vitals: Vital Signs Temp Pulse Pulse Resp BP Pulse Ox 10/24/20 07:38 112 H 20 129/99 96 10/24/20 06:24 101 H 18 160/100 96 10/24/20 05:38 115 H 10/24/20 05:28 99 F 113 H 18 160/81 90 L Intake and Output 10/23/20 10/24/20 10/24/20 22:59 06:59 14:59 Other: Weight 97.976 kg - Constitutional General appearance: no acute distress - Respiratory Respiratory: bilateral: CTA - Cardiovascular Rhythm: irregularly irregular Heart sounds: normal: S1, S2 Abnormal Heart Sounds: systolic murmur Results 10/24/20 05:27 10/24/20 05:27 Cardiac Enzymes 10/24/20 10/24/20 Range/Units 05:27 05:27 AST 28 (17-59) U/L Troponin I <0.012 (0.000-0.034) ng/mL Coagulation 10/24/20 Range/Units 05:27 PT 12.4 H (9.0-12.0) sec APTT 24.7 (22.0-30.0) sec CBC 10/24/20 Range/Units 05:27 WBC 6.3 (3.8-10.6) k/uL RBC 4.72 (4.30-5.90) m/uL Hgb 16.3 (13.0-17.5) gm/dL Hct 48.9 (39.0-53.0) % Plt Count 115 L (150-450) k/uL Comprehensive Metabolic Panel 10/24/20 Range/Units 05:27 Sodium 140 (137-145) mmol/L Potassium 3.8 (3.5-5.1) mmol/L Chloride 109 H (98-107) mmol/L Carbon Dioxide 21 L (22-30) mmol/L BUN 14 (9-20) mg/dL Creatinine 0.98 (0.66-1.25) mg/dL Glucose 132 H (74-99) mg/dL Calcium 9.2 (8.4-10.2) mg/dL AST 28 (17-59) U/L ALT 24 (4-49) U/L Alkaline Phosphatase 78 (38-126) U/L Total Protein 6.4 (6.3-8.2) g/dL Albumin 3.3 L (3.5-5.0) g/dL Current Medications Generic Name Dose Route Start Last Admin Trade Name Freq PRN Reason Stop Dose Admin Aspirin 325 mg 10/25/20 09:00 Aspirin 325 Mg Tab PO DAILY GRACE Sodium Chloride 1,000 mls @ 100 mls/hr 10/24/20 06:15 10/24/20 06:47 Saline 0.9% IV 100 mls/hr .Q10H GRACE Administration Nitroglycerin 0.4 mg 10/24/20 06:11 Nitroglycerin Sl Tabs 0.4 Mg Tab SUBLINGUAL Q5M PRN Chest Pain Intake and Output 10/23/20 10/24/20 10/24/20 22:59 06:59 14:59 Other: Weight 97.976 kg 10/24/20 05:27 10/24/20 05:27 Assessment and Plan Assessment: Assessment #1 intracranial mass #2 permanent atrial fibrillation was controlled heart rate #3 hypertension Plan #1 an echocardiogram is ordered and will follow-up with that #2 further investigation regarding the intracranial mass. Rule out meningioma versus axial tumor #3 monitor the patient for any episodes of sinus pauses/sinus arrest #4 follow-up with the patient
[2020-10-24] MEDS ORDERED: NON FORMULARY DRUG (Glucosamine Hcl/Chondroitin Su [Glucosamine-Chondroitin Cap] 1 EACH Ca PO SCH (10:00)
[2020-10-24] MEDS: MULTIVITAMINS, THERA 1 EACH TAB PO SCH (10:33)
[2020-10-24] MEDS: FUROSEMIDE 20 MG TAB PO SCH (10:33)
[2020-10-24] MEDS: METOPROLOL SUCCINATE (ER) 25 MG TAB.ER.24H PO SCH (10:33)
[2020-10-24] MEDS: TAMSULOSIN 0.4 MG CAP.ER.24H PO SCH (10:34)
--- NOTE | 2020-10-24 12:46 | ECHOF ---
Referral Reason:cm MEASUREMENTS -------- HEIGHT: 175.3 cm WEIGHT: 98.0 kg BP: 125/98 RVIDd: 3.6 cm (< 3.3) IVSd: 1.7 cm (0.6 - 1.1) LVIDd: 4.5 cm (3.9 - 5.3) LVPWd: 1.7 cm (0.6 - 1.1) IVSs: 2.0 cm LVIDs: 3.7 cm LVPWs: 1.7 cm LAESV Index (A-L): 71.20 ml/m Ao Diam: 3.7 cm (2.0 - 3.7) AV Cusp: 1.8 cm (1.5 - 2.6) LA Diam: 6.5 cm (2.7 - 3.8) MV EXCURSION: 19.176 mm (> 18.000) MV EF SLOPE: 180 mm/s (70 - 150) EPSS: 0.7 cm AR PHT: 357 ms RAP: 5.00 mmHg RVSP: 42.70 mmHg FINDINGS -------- Atrial fibrillation. This was a technically adequate study. The left ventricular size is normal. There is severe concentric left ventricular hypertrophy. The re is moderate global hypokinesis of LV . Overall left ventricular systolic function is moderate-se verely impaired with, an EF between 30 - 35 %. The right ventricle is mildly enlarged. LA is severely dilated >40 ml/m2 The right atrium is moderately enlarged. Interatrial and interventricular septum intact. There is mild aortic valve sclerosis. Trace amount of aortic regurgitation. There is mild aortic stenosis present. Moderate mitral regurgitation is present. Moderate tricuspid regurgitation present. There is moderate pulmonary hypertension. The right nanda tricular systolic pressure, as measured by Doppler, is 42.70mmHg. There is no pulmonic regurgitation present. The aortic root size is normal. IVC Not well visulized. There is a trivial pericardial effusion present. CONCLUSIONS -------- 1. The left ventricular size is normal. 2. There is severe concentric left ventricular hypertrophy. 3. There is moderate global hypokinesis of LV . 4. Overall left ventricular systolic function is moderate-severely impaired with, an EF between 30 - 35 %. 5. The right ventricle is mildly enlarged. 6. LA is severely dilated >40 ml/m2 7. The right atrium is moderately enlarged. 8. There is mild aortic valve sclerosis. 9. Trace amount of aortic regurgitation. 10. There is mild aortic stenosis present. 11. Moderate mitral regurgitation is present. 12. Moderate tricuspid regurgitation present. 13. There is moderate pulmonary hypertension. 14. The right ventricular systolic pressure, as measured by Doppler, is 42.70mmHg. 15. There is a trivial pericardial effusion present. ARABIC TRANSLATOR: Mini Briceno RDCS
--- NOTE | 2020-10-24 13:09 | P.CNNES ---
History of Present Illness Consult date: 10/24/20 Requesting physician: Alex Rico Reason for Consult: intracranial mass, syncope History of Present Illness: This is an 85-year-old gentleman with medical history of atrial fibrillation on eliquis, hypertension, hyperlipidemia, prediabetes who presented emergency department on 10/24/2020 for altered mental status and possible syncope. Some of the history is obtained from patient's (who is at [facility]). It seems t hat the patient was doing well the night prior to presentation at nighttime and then his woke up around 3:00 overnight to the bathroom and she heard the patient was breathing loudly and it was a different kind of noise (that baseline). The patient has no jerking of any extremities, has some drooling of mouth. His eyes were closed. She attempted to wake up the patient but she was unsuccessful. Per the in the past when he snore at night she would be able to wake-up him and this seemed different. As a result she called EMS. The stated that patient was in that stated for total of about 30 minutes. Patient denies any urinary, bowel incontinence or tongue bite or soreness. Upon presented to the hospital the patient did not have any dizziness or lightheadedness or any further episodes of presyncope or syncope. Patient does not have any history of stroke or seizure in the past. Patient feels he is back to baseline. He denies of any history of intracranial mass but has dizziness. Some of the patient home medication is the Eliquis 5mg bid, metoprolol, Lipitor 80mg qhs, Lasix. Some other workup in the hospital consisted of: CT of the head is reported as mass adjacent to the cerebral falx on the left side with surrounding 4 cm area of cortical white matter edema. This consistent with a tumor and could be a meningioma with surrounding reaction. Intra-axial tumor not excluded that. Contrast computed tomography scan or an MR scan would be helpful for further evaluation if clinically indicated. I personally reviewed the CT of the head and I felt that it's the medial left frontal suspicious for mass with surrounding edema. EKG is reported as age are fibrillation with rapid ventricular response. Left axis deviation. Lateral infarct, age undetermined. Abnormal EKG. Patient CBC with differential is the MCV is 120 which is elevated and the platelets 115 which is low otherwise the rest of CBC with differential is unremarkable. Chemistry panel is what's remarkable is the plasma lactic acid vein is 2.4 and carbon dioxide is 109 which slightly elevated otherwise serum glucose 132 which is just slightly elevated but not remarkable and the rest of the chemistry panel seems unremarkable. AST of 28 ALT of 24 CK level IV for a which is considered a low but no remarkable. Serum freeman virus PCR was not detected. Of note patient had MRI of the brain/AICD with and without because of dizziness and it was reported as age-related changes of atrophy and chronic small vessel ischemia. Sinus disease. No evidence of mass along the internal auditory canal. Additional finding above. Review of Systems Review of system: The 12 point system was reviewed and apparent positive and negative per HPI. Past Medical History Past Medical History: Atrial Fibrillation, GERD/Reflux, Hyperlipidemia, Hypertension, Osteoarthritis (OA), Prostate Disorder Additional Past Medical History / Comment(s): SKIN CA, pre-diabetes History of Any Multi-Drug Resistant Organisms: None Reported Past Surgical History: Cholecystectomy, Tonsillectomy Additional Past Surgical History / Comment(s): COLONOSCOPIES/POLYPECTOMY, TURP, CYSTOSCOPY FOR BLADDER CALCULUS REMOVAL, L INGUINAL HERNIA REPAIR, L FOOT FASCIOTOMY, ENDOSCOPIC SINUS SX, SKIN CANCER REMOVED FROM NOSE, BILATERAL CATARACT REMOVAL WITH LENS IMPLANTS. Past Anesthesia/Blood Transfusion Reactions: No Reported Reaction Past Psychological History: No Psychological Hx Reported Smoking Status: Former smoker Past Alcohol Use History: None Reported Past Drug Use History: None Reported - Past Family History Father Additional Family Medical History / Comment(s): FATHER AT THE AGE OF 75 YRS UNKNOWN CAUSE. FATHER HAD STOMACH ISSUES. Mother Family Medical History: Cancer Additional Family Medical History / Comment(s): MOTHER OF BREAST CANCER THAT METASTASIZED TO HER BONES AT THE AGE OF 80YRS. Medications and Allergies Home Medications Medication Instructions Recorded Confirmed Type Apixaban [Eliquis] 5 mg PO BID tab 01/27/17 10/24/20 Rx Nitroglycerin Sl Tabs [Nitrostat] 0.4 mg SUBLINGUAL Q5M PRN tab 01/27/17 10/24/20 Rx Furosemide [Lasix] 20 mg PO DAILY 09/23/20 10/24/20 History Glucosamine HCl/Chondroitin York 1 cap PO DAILY 09/23/20 10/24/20 History [Glucosamine-Chondroitin Cap] Metoprolol Succinate [Toprol XL] 75 mg PO DAILY 09/23/20 10/24/20 History Multivitamins, Thera [Multivitamin 1 tab PO DAILY 09/23/20 10/24/20 History (formulary)] Tamsulosin [Flomax] 0.4 mg PO DAILY 09/23/20 10/24/20 History Atorvastatin [Lipitor] 80 mg PO HS 10/24/20 10/24/20 History Allergies Allergy/AdvReac Type Severity Reaction Status Date / Time No Known Allergies Allergy Verified 10/24/20 09:08 Physical Examination - Vital Signs Vital Signs: Vital Signs Temp Pulse Pulse Resp BP Pulse Ox 10/24/20 11:57 101 H 20 142/98 97 10/24/20 10:15 108 H 20 125/98 97 10/24/20 09:12 108 H 20 163/113 96 10/24/20 07:38 112 H 20 129/99 96 10/24/20 06:24 101 H 18 160/100 96 10/24/20 05:38 115 H 10/24/20 05:28 99 F 113 H 18 160/81 90 L Intake and Output 10/23/20 10/24/20 10/24/20 22:59 06:59 14:59 Other: Weight 97.976 kg GENERAL: The patient is lying in bed and is not in acute distress. CHEST: The heart rate is regular rate rhythm. No murmurs to auscultation. No carotid bruit bilaterally. LUNG: Clear to auscultation bilaterally no wheezing noted throughout. Not labored breathing. ABDOMEN/GI: Bowel sounds present in all 4 quadrants. No tenderness to palpation throughout. NEUROLOGICAL: Higher mental function: The patient is awake, alert, oriented to self, place and time. Patient is following commands. No aphasia and no neglect. Cranial nerves: The pupils are round, equal and reactive to light and accommodation. Visual nixon are full to confrontation throughout. Extraocular movement is intact no nystagmus is noted. Facial sensation is normal to touch throughout. The facial strength is normal throughout. Hearing is normal bilaterally to hand rub. Tongue is midline and moved [id number] without any difficulty. No dysarthria is noted. Shoulder shrug is normal bilaterally. Motor: Gait is deferred. The strength is 5 over 5 throughout. Normal tone and bulk. Cerebellum: Normal finger to nose heel to jones bilaterally. Sensation: Sensation is normal to touch throughout. Reflexes (right/left): 2+ throughout. Plantars are downgoing bilaterally. Results - Laboratory Findings CBC and BMP: 10/24/20 05:27 10/24/20 05:27 Abnormal Lab Findings: Abnormal Labs 10/24/20 10/24/20 10/24/20 05:27 05:27 05:27 MCV 103.7 H Plt Count 115 L PT 12.4 H INR 1.2 H Chloride Carbon Dioxide Glucose Plasma Lactic Acid Luis Daniel Creatine Kinase Albumin Urine Protein Trace H Ur Leukocyte Esterase Small H Urine WBC 14 H Urine Mucus Rare H 10/24/20 10/24/20 05:27 05:27 MCV Plt Count PT INR Chloride 109 H Carbon Dioxide 21 L Glucose 132 H Plasma Lactic Acid Luis Daniel 2.4 H* Creatine Kinase 44 L Albumin 3.3 L Urine Protein Ur Leukocyte Esterase Urine WBC Urine Mucus Assessment and Plan Assessment: Left medial frontal mass with surrounding vasogenic edema. It seems Intra-axial on reviewing imaging but cannot exclude extra-axial tumor (meningioma). Episode of "unusual noise and unable to arouse patient" seems like new onset seizure due to above. Atrial fibrillation on Eliquis Hypertension--currently mildly to moderate elevated. Hyperlipidemia History of Prediabetes Plan: I ordered MRI of the brain with and without. I started the patient on Keppra 500 mg 1 tablet twice a day for seizure prophylaxis. Notified the patient about the side-effects of medications causing worsening of mood/behavior. We'll decide on use of the steroids after getting the MRI. Ordered routine EEG. Placed the patient on seizure precaution and seizure pads. Q4 hour neuro checks. Patient was notified as outpatient he needs to follow-up with neurosurgeon within 1-2 weeks. Cardiology is consulted For anticoagulation use (prefer use of heparin drip to avoid hemorrhagic conversion and keep PTT between 45-60 and avoid any boluses). 2-D echo is ordered and are pending. Cardiology is on board. We'll defer the rest of the medical management to the primary team. The patient needs to follow-up with neurologist and neurosurgeon as outpatient within 1-2 weeks. The plan is discussed with the patient and his family members ( and children who are at bedside). Thank you for the consultation. Elías Infante M.D. Neuro-hospitalist Time with Patient: Greater than 30
[2020-10-24] MEDS: levETIRAcetam 500 MG TAB PO SCH (14:26)
--- NOTE | 2020-10-24 15:21 | MR ---
EXAMINATION TYPE: MR brain wo/w con DATE OF EXAM: 10/24/2020 COMPARISON: MRI brain July 02, 2019. CT brain earlier today. HISTORY: Brain mass, near syncope. TECHNIQUE: Multiplanar, multisequence images of the brain and brainstem is performed without and with IV contras t, utilizing 9 mL intravenous Gadavist . FINDINGS: Diffusion weighted images demonstrate no evidence of a recent infarct or other diffusion ab normality. There is mild ventricular and sulcal prominence redemonstrated. Scattered foci of T2 hyperintensity throughout the white matter bilaterally are again seen. Correspon ding to recent CT there is a oval high 1.6 x 1.2 cm slightly lobulated lesion with surrounding T2 hyp erintensity causing cortical expansion and sulcal effacement. There is no significant postcontrast en hancement. Finding new from prior MRI. Findings slightly hypointense on T1-weighted images and isoint ense to white matter on T2-weighted images. Midline structures redemonstrate normal morphology. The craniocervical junction remains within corinne l limits. The dural venous sinuses appear patent. The visualized sinuses are predominantly clear and the globes are intact. 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 IMPRESSION: 1. Confirmation of new high left frontal mass on MRI appears intra-axial in location. Hyperdensity no suzette on CT. No significant postcontrast enhancement but there is local mass effect noted. Finding new from July 02, 2019 MRI. Neoplasm needs to be considered. Hemorrhagic metastatic lesion is in different ial. Primary brain neoplasm is also in differential. Lack of enhancement is very unusual.
--- NOTE | 2020-10-24 16:53 | P.HPIM ---
History of Present Illness H&P Date: 10/24/20 James Coello, is a year old male who presented to [facility] emergency room with a chief complaint of episodes of unresponsiveness. Patient states that his told him that he was breathing heavily last night, she tried to awaken him but he was not able to wake up for about 15 minutes, his called EMS and patient was brought into emergency room. He was evaluated in the emergency room vital examination on presentation revealed a temperature of 99 pulse 113 respiration 18 blood pressure 160/81 pulse ox 90% on room air Laboratory data reveals a white blood count of 6.3 hemoglobin 16.3 platelet count 115 lactic acid 2.4 troponin level less than 0.012 urine analysis revealed positive leukocyte esterase and 14 white blood cells in high power field Testing in the emergency room revealed computed tomography scan of the brain revealed mass at just sent to the cerebral falx in the left side with surrounding 4 cm area of cortical white matter edema Patient was admitted to medical floor for further evaluation and treatment neurology and cardiology and oncology consultation were requested Past medical history is significant for history of hypertension, history of atrial fibrillation, history of hyperlipidemia, history of benign prostatic hypertrophy and history of osteoarthritis On review of systems patient is alert and oriented 3 in no distress there is no fever or chills no headaches no dizziness at this time, he states that he had occasional episodes of headache and dizziness over the last few weeks, no chest pain no shortness of breath no cough no nausea or vomiting no abdominal pain no diarrhea no blood in the stools no burning with urination no frequency or urgency and no hematuria. Past Medical History Past Medical History: Atrial Fibrillation, GERD/Reflux, Hyperlipidemia, Hypertension, Osteoarthritis (OA), Prostate Disorder Additional Past Medical History / Comment(s): SKIN CA, pre-diabetes History of Any Multi-Drug Resistant Organisms: None Reported Past Surgical History: Cholecystectomy, Tonsillectomy Additional Past Surgical History / Comment(s): COLONOSCOPIES/POLYPECTOMY, TURP, CYSTOSCOPY FOR BLADDER CALCULUS REMOVAL, L INGUINAL HERNIA REPAIR, L FOOT FASCIOTOMY, ENDOSCOPIC SINUS SX, SKIN CANCER REMOVED FROM NOSE, BILATERAL CATARACT REMOVAL WITH LENS IMPLANTS. Past Anesthesia/Blood Transfusion Reactions: No Reported Reaction Past Psychological History: No Psychological Hx Reported Smoking Status: Former smoker Past Alcohol Use History: None Reported Past Drug Use History: None Reported - Past Family History Father Additional Family Medical History / Comment(s): FATHER AT THE AGE OF 75 YRS UNKNOWN CAUSE. FATHER HAD STOMACH ISSUES. Mother Family Medical History: Cancer Additional Family Medical History / Comment(s): MOTHER OF BREAST CANCER THAT METASTASIZED TO HER BONES AT THE AGE OF 80YRS. Medications and Allergies Home Medications Medication Instructions Recorded Confirmed Type Apixaban [Eliquis] 5 mg PO BID tab 01/27/17 10/24/20 Rx Nitroglycerin Sl Tabs [Nitrostat] 0.4 mg SUBLINGUAL Q5M PRN tab 01/27/17 10/24/20 Rx Furosemide [Lasix] 20 mg PO DAILY 09/23/20 10/24/20 History Glucosamine HCl/Chondroitin York 1 cap PO DAILY 09/23/20 10/24/20 History [Glucosamine-Chondroitin Cap] Metoprolol Succinate [Toprol XL] 75 mg PO DAILY 09/23/20 10/24/20 History Multivitamins, Thera [Multivitamin 1 tab PO DAILY 09/23/20 10/24/20 History (formulary)] Tamsulosin [Flomax] 0.4 mg PO DAILY 09/23/20 10/24/20 History Atorvastatin [Lipitor] 80 mg PO HS 10/24/20 10/24/20 History Allergies Allergy/AdvReac Type Severity Reaction Status Date / Time No Known Allergies Allergy Verified 10/24/20 09:08 Physical Exam Vitals: Vital Signs Temp Pulse Pulse Resp BP Pulse Ox 10/24/20 09:12 108 H 20 163/113 96 10/24/20 07:38 112 H 20 129/99 96 10/24/20 06:24 101 H 18 160/100 96 10/24/20 05:38 115 H 10/24/20 05:28 99 F 113 H 18 160/81 90 L Intake and Output 10/23/20 10/24/20 10/24/20 22:59 06:59 14:59 Other: Weight 97.976 kg In general patient is alert and oriented x 3 in no distress HEENT head normocephalic and atraumatic Neck is supple no JVD no goiter no lymphadenopathy no carotid bruit Chest examination is clear to auscultation no crackles no wheezing Cardiac exam reveals regular heart sounds S1 and S2 no gallops no murmurs Abdomen is soft nontender no organomegaly with normal bowel sounds Extremity exam reveals no edema no cyanosis or clubbing Neurological examination reveals no gross focal deficits Results CBC & Chem 7: 10/24/20 05:27 10/24/20 05:27 Labs: Abnormal Lab Results - Last 24 Hours (Table) 10/24/20 10/24/20 10/24/20 Range/Units 05:27 05:27 05:27 MCV 103.7 H (80.0-100.0) fL Plt Count 115 L (150-450) k/uL PT 12.4 H (9.0-12.0) sec INR 1.2 H (<1.2) Chloride (98-107) mmol/L Carbon Dioxide (22-30) mmol/L Glucose (74-99) mg/dL Plasma Lactic Acid Luis Daniel (0.7-2.0) mmol/L Creatine Kinase (55-170) U/L Albumin (3.5-5.0) g/dL Urine Protein Trace H (Negative) Ur Leukocyte Esterase Small H (Negative) Urine WBC 14 H (0-5) /hpf Urine Mucus Rare H (None) /hpf 10/24/20 10/24/20 Range/Units 05:27 05:27 MCV (80.0-100.0) fL Plt Count (150-450) k/uL PT (9.0-12.0) sec INR (<1.2) Chloride 109 H (98-107) mmol/L Carbon Dioxide 21 L (22-30) mmol/L Glucose 132 H (74-99) mg/dL Plasma Lactic Acid Luis Daniel 2.4 H* (0.7-2.0) mmol/L Creatine Kinase 44 L (55-170) U/L Albumin 3.3 L (3.5-5.0) g/dL Urine Protein (Negative) Ur Leukocyte Esterase (Negative) Urine WBC (0-5) /hpf Urine Mucus (None) /hpf Assessment and Plan Plan: Episode of unresponsiveness Intracranial mass, in the left anterior cerebral falx , on computed tomography scan of the brain done in the emergency room , neurology consultation was requested Underlying history of atrial fibrillation maintained on anticoagulation with Eliquis Underlying history of hypertension Underlying history of hyperlipidemia Underlying history of benign prostatic hypertrophy Underlying history of osteoarthritis At this time patient is admitted to telemetry floor Cardiology consultation and neurology consultation are requested Home medications reviewed and reordered Will follow closely
[2020-10-24] MEDS ORDERED: DEXAMETHASONE SOD PHOSPHATE 10 MG/ML 1 ML VIAL IV STA (16:58)
[2020-10-24] MEDS ORDERED: APIXABAN 5 MG TAB PO SCH (21:00)
[2020-10-24] MEDS: ATORVASTATIN 80 MG TAB PO SCH (22:45)
[2020-10-25] MEDS: DEXAMETHASONE SOD PHOSPHATE 4 MG/ML 1 ML VIAL IV SCH ×4 (00:06→18:22)
[2020-10-25] MEDS: levETIRAcetam 500 MG TAB PO SCH ×3 (00:06→19:58)
[2020-10-25 00:49] LABS: Glucose,Whole Blood 140 mg/dL (75-99)
[2020-10-25] MEDS: SODIUM CHLORIDE 0.9% 1,000 ML IV SCH ×2 (05:50→12:50)
[2020-10-25 06:59] LABS: Basophils % (A) 0 %; Eosinophils % (A) 0 %; HCT 50.2 % (39.0-53.0); HGB 17.6 gm/dL (13.0-17.5); Lymphocytes # (A) 0.9 k/uL (1.0-4.8); Lymphocytes % (A) 13 %; MCH 36.2 pg (25.0-35.0); MCV 103.7 fL (80.0-100.0); Macrocytosis Slight; Mean Platelet Volume 8.7; Monocytes # (A) 0.2 k/uL (0-1.0); Monocytes % (A) 2 %; Neutrophils # (A) 5.8 k/uL (1.3-7.7); Neutrophils % (A) 84 %; Platelet Count 111 k/uL (150-450); RBC 4.84 m/uL (4.30-5.90); RDW 13.4 % (11.5-15.5); WBC 6.8 k/uL (3.8-10.6)
[2020-10-25 07:24] LABS: ALT 21 U/L (4-49); AST 24 U/L (17-59); African American GFR (CKD) >90 (>60 ml/min/1.73 sqM); Albumin 3.5 g/dL (3.5-5.0); Albumin/Globulin Ratio 1.1; Alkaline Phosphatase 80 U/L (38-126); Anion Gap 9 mmol/L; Blood Urea Nitrogen 14 mg/dL (9-20); Calcium 9.5 mg/dL (8.4-10.2); Carbon Dioxide 23 mmol/L (22-30); Chloride 108 mmol/L (98-107); Globulin 3.1 g/dL; Glucose 160 mg/dL (74-99); Non-African American GFR(CKD) 79 (>60 ml/min/1.73 sqM); Potassium 4.3 mmol/L (3.5-5.1); Sodium 140 mmol/L (137-145); Total Bilirubin 1.3 mg/dL (0.2-1.3); Total Protein 6.6 g/dL (6.3-8.2)
[2020-10-25] MEDS: MULTIVITAMINS, THERA 1 EACH TAB PO SCH (08:29)
[2020-10-25] MEDS: METOPROLOL SUCCINATE (ER) 25 MG TAB.ER.24H PO SCH (08:29)
[2020-10-25] MEDS: TAMSULOSIN 0.4 MG CAP.ER.24H PO SCH (08:29)
[2020-10-25] MEDS: FUROSEMIDE 20 MG TAB PO SCH (08:29)
[2020-10-25] MEDS ORDERED: ASPIRIN 325 MG TAB PO SCH (09:00)
--- NOTE | 2020-10-25 12:34 | P.PN ---
Subjective Progress Note Date: 10/25/20 Patient seen at bedside and he is accompanied with his . He feels neurologically stable and denies of any headache, weakness, numbness. No seizure-like activity noted overnight or today. Objective - Vital Signs Vital signs: Vital Signs Temp 97.6 F 10/25/20 04:41 Pulse 101 H 10/25/20 08:05 Resp 18 10/25/20 08:05 BP 149/99 10/25/20 08:05 Pulse Ox 96 10/25/20 08:05 Intake & Output 10/24/20 10/25/20 10/25/20 18:59 06:59 18:59 Weight 97.976 kg Other: # Voids 3 - Exam GENERAL: The patient is lying in bed and is not in acute distress. NEUROLOGICAL: Higher mental function: The patient is awake, alert, oriented to self, place and time. Patient is following commands. No aphasia and no neglect. Cranial nerves: The pupils are round, equal and reactive to light and accommodation. Visual nixon are full to confrontation throughout. Extraocular movement is intact no nystagmus is noted. Facial sensation is normal to touch throughout. The facial strength is normal throughout. Hearing is normal bilaterally to hand rub. Tongue is midline and moved [id number] without any difficulty. No dysarthria is noted. Shoulder shrug is normal bilaterally. Motor: Gait is deferred. The strength is 5 over 5 throughout. Normal tone and bulk. Cerebellum: Normal finger to nose heel to jones bilaterally. Sensation: Sensation is normal to touch throughout. Reflexes (right/left): 2+ throughout. Plantars are downgoing bilaterally. WORK-UP: CT of the head is reported as mass adjacent to the cerebral falx on the left side with surrounding 4 cm area of cortical white matter edema. This consistent with a tumor and could be a meningioma with surrounding reaction. Intra-axial tumor not excluded that. Contrast computed tomography scan or an MR scan would be helpful for further evaluation if clinically indicated. I personally reviewed the CT of the head and I felt that it's the medial left frontal suspicious for mass with surrounding edema. MR the brain and as reported as confirmation of new high left frontal mass on MRI. Intra-axial location. Hyperdensity noted on the CT. No significant postcontrast enhancement but there is a local mass affect noted. Finding new from July 01 MRI. Neoplasm need to be considered. Hemorrhagic metastasis lesion is in the differential. Primary brain neoplasm is also on differential. Lack of enhancement is very unusual. - Labs CBC & Chem 7: 10/25/20 06:29 10/25/20 06:29 Labs: Abnormal Lab Results - Last 24 Hours (Table) 10/25/20 10/25/20 10/25/20 Range/Units 00:47 06:29 06:29 Hgb 17.6 H (13.0-17.5) gm/dL MCV 103.7 H (80.0-100.0) fL MCH 36.2 H (25.0-35.0) pg Plt Count 111 L (150-450) k/uL Lymphocytes # 0.9 L (1.0-4.8) k/uL Chloride 108 H (98-107) mmol/L Glucose 160 H (74-99) mg/dL POC Glucose (mg/dL) 140 H (75-99) mg/dL Microbiology - Last 24 Hours (Table) 10/24/20 05:27 Urine Culture - Preliminary Urine,Clean Catch Assessment and Plan Assessment: Left medial frontal mass with surrounding vasogenic edema. Unsure if primary brain neoplasm. Rule out metastasis. Episode of "unusual noise" and unable for to arouse patient" seems like new onset seizure due to above. Atrial fibrillation on Eliquis Hypertension--currently mildly to moderate elevated. Hyperlipidemia History of Prediabetes Plan: * Continue Keppra 500 mg 1 tablet twice a day for seizure prophylaxis. Notified the patient about the side-effects of medications causing worsening of mood/behavior. * Loaded with the patient with Decadron 10 mg once yesterday and then started the patient on 4 mg IV every 6 hours. We'll defer management of his the glucose to the primary team. * Pending routine EEG. * Continue on seizure precaution and seizure pads. * Q4 hour neuro checks. * Patient was notified as outpatient he needs to follow-up with neurosurgeon within 1-2 weeks. He prefers to see someone over [facility]. * Oncology team and the radiation oncology team are consulted. * Cardiology is consulted. * For anticoagulation use if needed (use heparin drip to avoid hemorrhagic conversion and keep PTT between 45-60 and avoid any boluses) for now to avoid any hemorrhagic conversion. * Cardiology is on board. * We'll defer the rest of the medical management to the primary team. * The patient needs to follow-up with neurologist (Recommend following-up with Dr. Venancio Barrientos [facility] [place] [id number], [place] [id number] ) and neurosurgeon as outpatient within 1-2 weeks. The plan is discussed with the patient and his . Elías Infante M.D. Neuro-hospitalist Time with Patient: Less than 30
[2020-10-25] MEDS: IOPAMIDOL CONTRAST (ORAL USE) VIAL PO PRN ×2 (13:12→14:13)
--- NOTE | 2020-10-25 14:11 | P.CONS ---
History of Present Illness - Reason for Consult Consult date: 10/25/20 - Chief Complaint Syncope, dizziness, and change in mental status - History of Present Illness An 85 years old gentleman who presented to the emergency room for syncope and loss of consciousness, the patient started breathing heavily and unable to respond to his , MRI of the brain revealed a new high left frontal mass with local mass effect and vasogenic edema this mass might be hemorrhagic metastatic lesion or primary brain neoplasm. The patient has noticed improvement after he arrived the hospital, Decadron IV was started seizure protection has started as well. Today the patient is doing well , He denies headache, nausea, and vomiting .He is sitting up in the bed and talking to his family. He is completely asymptomatic. Review of Systems Constitutional: Reports as per HPI Eyes: bilateral as per HPI Cardiovascular: Reports as per HPI Gastrointestinal: Reports as per HPI Genitourinary: Reports as per HPI Musculoskeletal: Reports as per HPI Integumentary: Reports as per HPI Neurological: Reports as per HPI Psychiatric: Reports as per HPI Endocrine: Reports as per HPI Hematologic/Lymphatic: Reports as per HPI Allergic/Immunologic: Reports as per HPI Past Medical History Past Medical History: Atrial Fibrillation, GERD/Reflux, Hyperlipidemia, Hypertension, Osteoarthritis (OA), Prostate Disorder Additional Past Medical History / Comment(s): SKIN CA, pre-diabetes, 2 years ago brettschneider white spots on mri on brain- mri due to dizziness when patient got up and walked, dizziness never resolved, kidney stone, current cyst on liver mri of liver next week History of Any Multi-Drug Resistant Organisms: None Reported Past Surgical History: Cholecystectomy, Tonsillectomy Additional Past Surgical History / Comment(s): COLONOSCOPIES/POLYPECTOMY, TURP, CYSTOSCOPY FOR BLADDER CALCULUS REMOVAL, L INGUINAL HERNIA REPAIR, L FOOT FASCIOTOMY, ENDOSCOPIC SINUS SX, SKIN CANCER REMOVED FROM NOSE, BILATERAL CA TARACT REMOVAL WITH LENS IMPLANTS. Past Anesthesia/Blood Transfusion Reactions: No Reported Reaction Past Psychological History: Depression Smoking Status: Never smoker Past Alcohol Use History: None Reported Additional Past Alcohol Use History / Comment(s): PT RESIDES WITH HIS SPOUSE. HE IS INDEPENDENT. Past Drug Use History: None Reported - Past Family History Father Additional Family Medical History / Comment(s): FATHER AT THE AGE OF 75 YRS UNKNOWN CAUSE. FATHER HAD STOMACH ISSUES. Mother Family Medical History: Cancer Additional Family Medical History / Comment(s): MOTHER OF BREAST CANCER THAT METASTASIZED TO HER BONES AT THE AGE OF 80YRS. Medications and Allergies Home Medications Medication Instructions Recorded Confirmed Type Apixaban [Eliquis] 5 mg PO BID tab 01/27/17 10/24/20 Rx Nitroglycerin Sl Tabs [Nitrostat] 0.4 mg SUBLINGUAL Q5M PRN tab 01/27/17 10/24/20 Rx Furosemide [Lasix] 20 mg PO DAILY 09/23/20 10/24/20 History Glucosamine HCl/Chondroitin York 1 cap PO DAILY 09/23/20 10/24/20 History [Glucosamine-Chondroitin Cap] Metoprolol Succinate [Toprol XL] 75 mg PO DAILY 09/23/20 10/24/20 History Multivitamins, Thera [Multivitamin 1 tab PO DAILY 09/23/20 10/24/20 History (formulary)] Tamsulosin [Flomax] 0.4 mg PO DAILY 09/23/20 10/24/20 History Atorvastatin [Lipitor] 80 mg PO HS 10/24/20 10/24/20 History Allergies Allergy/AdvReac Type Severity Reaction Status Date / Time No Known Allergies Allergy Verified 10/24/20 09:08 Physical Exam Vitals: Vital Signs Temp Pulse Pulse Resp BP BP Pulse Ox 10/25/20 08:05 101 H 18 149/99 96 10/25/20 08:00 101 H 18 10/25/20 07:00 96 10/25/20 04:41 97.6 F 102 H 18 149/82 94 L 10/25/20 00:54 98 F 110 H 16 147/83 96 10/24/20 17:32 106 H 20 139/109 97 10/24/20 16:21 97.9 F 101 H 20 144/90 97 Intake and Output 10/24/20 10/25/20 10/25/20 22:59 06:59 14:59 Intake Total 1820 Balance 1820 Intake: Intake, IV Titration 1200 Amount Sodium Chloride 0.9% 1, 1200 000 ml @ 100 mls/hr IV . Q10H GRACE Rx#:[id number] Oral 620 Other: Voiding Method Toilet # Voids 1 3 4 Weight 97.976 kg - Constitutional General appearance: average body habitus, no acute distress - EENT Eyes: PERRLA Ears: bilateral: normal - Neck Neck: normal ROM Thyroid: bilateral: normal size - Respiratory Respiratory: bilateral: CTA - Cardiovascular Rhythm: irregularly irregular - Gastrointestinal General gastrointestinal: normal bowel sounds - Integumentary Integumentary: normal - Neurologic Neurologic: CNII-XII intact - Musculoskeletal Musculoskeletal: gait normal - Psychiatric Psychiatric: A&O x's 3, appropriate affect, intact judgment & insight Results CBC & Chem 7: 10/25/20 06:29 10/25/20 06:29 Labs: Abnormal Lab Results - Last 24 Hours (Table) 10/25/20 10/25/20 10/25/20 Range/Units 00:47 06:29 06:29 Hgb 17.6 H (13.0-17.5) gm/dL MCV 103.7 H (80.0-100.0) fL MCH 36.2 H (25.0-35.0) pg Plt Count 111 L (150-450) k/uL Lymphocytes # 0.9 L (1.0-4.8) k/uL Chloride 108 H (98-107) mmol/L Glucose 160 H (74-99) mg/dL POC Glucose (mg/dL) 140 H (75-99) mg/dL Microbiology - Last 24 Hours (Table) 10/24/20 05:27 Urine Culture - Preliminary Urine,Clean Catch Assessment and Plan Assessment: an 85 years old gentleman with left medial frontal mass with vasogenic edema, the mass is suspicious for neoplasm based on the images and the location. (1) Frontal mass of brain Current Visit: Yes Status: Acute Code(s): G93.89 - OTHER SPECIFIED DISORDERS OF BRAIN SNOMED Code(s): 683338925 (2) Unresponsive Current Visit: Yes Status: Acute Code(s): R41.89 - OTH SYMPTOMS AND SIGNS W COGNITIVE FUNCTIONS AND AWARENESS SNOMED Code(s): 085053683 Plan: Images reviewed including MRI in June 2019, which has not shown the mass in the left frontal lobe. For unknown primary staging workup the patient is undergoing CT of the chest ,abdomen, pelvis for further evaluation. The patient will discuss the option of a craniatomy for definitive diagnosis . Based on the finding of the pathology we will finalize our recommendation if needed.
[2020-10-25 14:19] VITALS: BMI 31.8
[2020-10-25 15:20] LABS: Chol/HDL Ratio 2.98; Cholesterol 125 mg/dL (0-200); Triglycerides <50.0 mg/dL (0.0-149.0)
--- NOTE | 2020-10-25 16:52 | EEG ---
ELECTROENCEPHALOGRAM REPORT DATE OF SERVICE: 10/25/2020 CLINICAL HISTORY: This is an 85-year-old gentleman with history of left frontal mass who had a suspected seizure episode. The video EEG is obtained to evaluate for seizure epileptiform activity. Relevant medication is Keppra. EEG TYPE: A routine 21-channel EEG is performed with video using the 10/20 electrode placement system. DESCRIPTION: Wakefulness is only obtained. During wakefulness, there is a posterior-dominant rhythm of low to moderate voltage of 9 hertz activity. There is no physiological sleep architecture seen. There is rare left frontal delta slowing. Interictal and ictal: None. ACTIVATION PROCEDURE: Photic stimulation did not evoke a posterior driving response. There is no abnormality during the photic stimulation. Hyperventilation is not performed. CLINICAL INTERPRETATION: This is an abnormal routine EEG. There is rare focal slowing over the left frontal which is consistent with the patient's history of frontal mass. Otherwise the background is normal and there is no epileptiform or seizure activity noted. Clinical correlation is recommended. MMYVONNE / CHRISTYN: [id number] / JAX
--- NOTE | 2020-10-25 17:24 | P.HPADDEND ---
H&P Addendum H&P Addendum Date: 10/24/20 Patient underwent an MRI of the brain which confirmed new high left frontal mass, with local mass effect Patient was evaluated by neurology, and was started on IV Keppra Case was discussed with Dr. Elaís Infante neurologist At this time IV Decadron will be added Consultation for oncology and radiation oncology was initiated
--- NOTE | 2020-10-25 18:01 | P.CONS ---
History of Present Illness - Reason for Consult Consult date: 10/25/20 frontal mass Requesting physician: Alex Rico - Chief Complaint syncopy - History of Present Illness Pt is a very pleasant man we have been asked to see re: mass in the brain, his is at bedside. Brought to hospital for episode of unresponsiveness. Pt reports dizziness x 1 year, more recently he has been experiencing partial BOOTHE, felt more on the right side, reports dysphagia. notes mild confusion at times, no personality changes. Denies changes in vision, hearing, unintentional wt loss, night sweats, new cough, SOB, chest pain, changes in bowel or bladder. He has Hx basal cell skin cancer, kidney stones. He is feeling pretty good on steroids, has been seen by Neuro and started on seizure medication. Review of Systems 10 point ROS Is neg except as stated in HPI Past Medical History Past Medical History: Atrial Fibrillation, GERD/Reflux, Hyperlipidemia, Hypertension, Osteoarthritis (OA), Prostate Disorder Additional Past Medical History / Comment(s): SKIN CA, pre-diabetes, 2 years ago brettschneider white spots on mri on brain- mri due to dizziness when patient got up and walked, dizziness never resolved, kidney stone, current cyst on liver mri of liver next week History of Any Multi-Drug Resistant Organisms: None Reported Past Surgical History: Cholecystectomy, Tonsillectomy Additional Past Surgical History / Comment(s): COLONOSCOPIES/POLYPECTOMY, TURP, CYSTOSCOPY FOR BLADDER CALCULUS REMOVAL, L INGUINAL HERNIA REPAIR, L FOOT FASCIOTOMY, ENDOSCOPIC SINUS SX, SKIN CANCER REMOVED FROM NOSE, BILATERAL CATARACT REMOVAL WITH LENS IMPLANTS. Past Anesthesia/Blood Transfusion Reactions: No Reported Reaction Past Psychological History: Depression Smoking Status: Never smoker Past Alcohol Use History: None Reported Additional Past Alcohol Use History / Comment(s): PT RESIDES WITH HIS SPOUSE. HE IS INDEPENDENT. Past Drug Use History: None Reported - Past Family History Father Additional Family Medical History / Comment(s): FATHER AT THE AGE OF 75 YRS UNKNOWN CAUSE. FATHER HAD STOMACH ISSUES. Mother Family Medical History: Cancer Additional Family Medical History / Comment(s): MOTHER OF BREAST CANCER THAT METASTASIZED TO HER BONES AT THE AGE OF 80YRS. Medications and Allergies Home Medications Medication Instructions Recorded Confirmed Type Apixaban [Eliquis] 5 mg PO BID tab 01/27/17 10/24/20 Rx Nitroglycerin Sl Tabs [Nitrostat] 0.4 mg SUBLINGUAL Q5M PRN tab 01/27/17 10/24/20 Rx Furosemide [Lasix] 20 mg PO DAILY 09/23/20 10/24/20 History Glucosamine HCl/Chondroitin York 1 cap PO DAILY 09/23/20 10/24/20 History [Glucosamine-Chondroitin Cap] Metoprolol Succinate [Toprol XL] 75 mg PO DAILY 09/23/20 10/24/20 History Multivitamins, Thera [Multivitamin 1 tab PO DAILY 09/23/20 10/24/20 History (formulary)] Tamsulosin [Flomax] 0.4 mg PO DAILY 09/23/20 10/24/20 History Atorvastatin [Lipitor] 80 mg PO HS 10/24/20 10/24/20 History Allergies Allergy/AdvReac Type Severity Reaction Status Date / Time No Known Allergies Allergy Verified 10/24/20 09:08 Physical Exam Vitals: Vital Signs Temp Pulse Pulse Pulse Resp BP BP 10/25/20 13:01 97.8 F 63 18 139/107 10/25/20 08:05 101 H 18 10/25/20 08:00 101 H 18 10/25/20 07:00 10/25/20 04:41 97.6 F 102 H 18 10/25/20 00:54 98 F 110 H 16 10/24/20 17:32 106 H 20 139/109 BP Pulse Ox 10/25/20 13:01 156/104 92 L 10/25/20 08:05 149/99 96 10/25/20 08:00 10/25/20 07:00 96 10/25/20 04:41 149/82 94 L 10/25/20 00:54 147/83 96 10/24/20 17:32 97 Intake and Output 10/25/20 10/25/20 10/25/20 06:59 14:59 22:59 Intake Total 1820 Balance 1820 Intake: Intake, IV Titration 1200 Amount Sodium Chloride 0.9% 1, 1200 000 ml @ 100 mls/hr IV . Q10H GRACE Rx#:[id number] Oral 620 Other: Voiding Method Toilet # Voids 3 4 Weight 97.976 kg - Constitutional General appearance: cooperative, no acute distress, obese - EENT Eyes: anicteric sclerae, EOMI ENT: hearing grossly normal, normal oropharynx - Neck Neck: no lymphadenopathy - Respiratory Respiratory: bilateral: CTA - Cardiovascular Rhythm: regular Heart sounds: normal: S1, S2 Abnormal Heart Sounds: no systolic murmur, no diastolic murmur, no rub, no S3 Gallop, no S4 Gallop, no click, no other leg Peripheral Edema: bilateral: None - Gastrointestinal General gastrointestinal: no absent bowel sounds, no decreased bowel sounds, no distended, no hepatomegaly, no hyperactive bowel sounds, normal bowel sounds, no organomegaly, no rigid, no scaphoid, soft, no splenomegaly, no tenderness, no umbilical hernia, ventral hernia - Integumentary Integumentary: normal - Neurologic Neurologic: CNII-XII intact - Musculoskeletal Musculoskeletal: strength equal bilaterally - Psychiatric Psychiatric: A&O x's 3, appropriate affect, intact judgment & insight Results CBC & Chem 7: 10/25/20 06:29 10/25/20 06:29 Labs: Abnormal Lab Results - Last 24 Hours (Table) 10/25/20 10/25/20 10/25/20 Range/Units 00:47 06:29 06:29 Hgb 17.6 H (13.0-17.5) gm/dL MCV 103.7 H (80.0-100.0) fL MCH 36.2 H (25.0-35.0) pg Plt Count 111 L (150-450) k/uL Lymphocytes # 0.9 L (1.0-4.8) k/uL Chloride 108 H (98-107) mmol/L Glucose 160 H (74-99) mg/dL POC Glucose (mg/dL) 140 H (75-99) mg/dL Microbiology - Last 24 Hours (Table) 10/24/20 05:27 Urine Culture - Preliminary Urine,Clean Catch Coagulase Negative Staph Chest x-ray: report reviewed CT Scan - head: report reviewed MRI - head: report reviewed Assessment and Plan (1) Frontal mass of brain Narrative/Plan: Discussed with pt and that mass in the brain may or may not be malignant (no post contrast enhancement). CT CAP recommended to eval for any masses or lesions that could be a primary. If nothing found then pt need to be seen by [facility] for biopsy of mass. Pt and verbalized understanding. CT ordered, pending results. Current Visit: Yes Status: Acute Priority: High Code(s): G93.89 - OTHER SPECIFIED DISORDERS OF BRAIN SNOMED Code(s): 316580556 Plan: Attests: I have performed H&P and developed impression and plan of care for pt. Discussed with dictator. I agree with dictated note, documented as a scr randee.
--- NOTE | 2020-10-25 19:10 | P.PN ---
Subjective Progress Note Date: 10/25/20 James Coello, is a year old male who presented to [facility] emergency room with a chief complaint of episodes of unresponsiveness. Patient states that his told him that he was breathing heavily last night, she tried to awaken him but he was not able to wake up for about 15 minutes, his called EMS and patient was brought into emergency room. He was evaluated in the emergency room vital examination on presentation revealed a temperature of 99 pulse 113 respiration 18 blood pressure 160/81 pulse ox 90% on room air Laboratory data reveals a white blood count of 6.3 hemoglobin 16.3 platelet count 115 lactic acid 2.4 troponin level less than 0.012 urine analysis revealed positive leukocyte esterase and 14 white blood cells in high power field Testing in the emergency room revealed computed tomography scan of the brain revealed mass at just sent to the cerebral falx in the left side with surrounding 4 cm area of cortical white matter edema Patient was admitted to medical floor for further evaluation and treatment neurology and cardiology and oncology consultation were requested Past medical history is significant for history of hypertension, history of atrial fibrillation, history of hyperlipidemia, history of benign prostatic hypertrophy and history of osteoarthritis On review of systems patient is alert and oriented 3 in no distress there is no fever or chills no headaches no dizziness at this time, he states that he had occasional episodes of headache and dizziness over the last few weeks, no chest pain no shortness of breath no cough no nausea or vomiting no abdominal pain no diarrhea no blood in the stools no burning with urination no frequency or urgency and no hematuria. On 10/25/2020 Patient was seen and examined on the medical floor, he is alert and oriented x 3 in no distress, he denies any complaints there is no fever or chills no headache or dizziness no chest pain no shortness of breath no palpitation no cough no nausea or vomiting no abdominal pain no diarrhea no blood in the stools no burning with urination no frequency or urgency and no hematuria, there is no weakness or numbness in any of the extremities no change in vision speech or gait. Patient remained asymptomatic, he is maintained on IV Keppra and IV Decadron neurology recommendation, he was evaluated by oncology, computed tomography scan of the chest abdomen and pelvis were ordered to assess whether this is a primary brain tumor versus metastatic brain disease, at this time will continue with current management awaiting testing results and further recommendation from oncology. Objective - Vital Signs Vital signs: Vital Signs Temp 97.6 F 10/25/20 04:41 Pulse 101 H 10/25/20 08:05 Resp 18 10/25/20 08:05 BP 149/99 10/25/20 08:05 Pulse Ox 96 10/25/20 08:05 Intake & Output 10/24/20 10/25/20 10/25/20 18:59 06:59 18:59 Intake Total 1820 Balance 1820 Weight 97.976 kg Intake: Intake, IV Titration 1200 Amount Sodium Chloride 0.9% 1, 1200 000 ml @ 100 mls/hr IV . Q10H GRACE Rx#:[id number] Oral 620 Other: Voiding Method Toilet # Voids 3 4 - Exam In general patient is alert and orientedx x-3 in no distress HEENT head normocephalic and atraumatic Neck is supple no JVD no goiter no lymphadenopathy no carotid bruit Chest examination is clear to auscultation no crackles no wheezing Cardiac exam reveals regular heart sounds S1 and S2 no gallops no murmurs Abdomen is soft nontender no organomegaly with normal bowel sounds Extremity exam reveals no edema no cyanosis or clubbing Neurological examination reveals no gross focal deficits - Labs CBC & Chem 7: 10/25/20 06:29 10/25/20 06:29 Labs: Abnormal Lab Results - Last 24 Hours (Table) 10/25/20 10/25/20 10/25/20 Range/Units 00:47 06:29 06:29 Hgb 17.6 H (13.0-17.5) gm/dL MCV 103.7 H (80.0-100.0) fL MCH 36.2 H (25.0-35.0) pg Plt Count 111 L (150-450) k/uL Lymphocytes # 0.9 L (1.0-4.8) k/uL Chloride 108 H (98-107) mmol/L Glucose 160 H (74-99) mg/dL POC Glucose (mg/dL) 140 H (75-99) mg/dL Microbiology - Last 24 Hours (Table) 10/24/20 05:27 Urine Culture - Preliminary Urine,Clean Catch Assessment and Plan Plan: Episode of unresponsiveness Intracranial mass, in the left anterior cerebral falx , on computed tomography scan of the brain done in the emergency room , neurology consultation was requested Underlying history of atrial fibrillation maintained on anticoagulation with Eliquis Underlying history of hypertension Underlying history of hyperlipidemia Underlying history of benign prostatic hypertrophy Underlying history of osteoarthritis At this time patient is admitted to telemetry floor Cardiology consultation and neurology consultation are requested Home medications reviewed and reordered Will follow closely
[2020-10-25] MEDS: ATORVASTATIN 80 MG TAB PO SCH (19:58)
[2020-10-26] MEDS: SODIUM CHLORIDE 0.9% 1,000 ML IV SCH ×3 (04:24→16:22)
--- NOTE | 2020-10-26 04:28 | CT ---
EXAMINATION TYPE: CT ChestAbdPelvis w con DATE OF EXAM: 10/25/2020 COMPARISON: CT abdomen pelvis 09/23/2020 HISTORY: mets to brain CT DLP: 1808.9 mGycm Automated exposure control for dose reduction was used. CONTRAST: Performed with IV Contrast, patient injected with 100 mL of Isovue 300. There is some interstitial linear density in the posterior lung nixon consistent with scarring and s ubsegmental atelectasis. Heart is enlarged. There is small pericardial effusion. There are no hilar m asses. There is no mediastinal adenopathy. Thoracic aorta is intact. There is no aneurysm or dissecti on. I see no filling defects in the pulmonary arteries. There is 2.5 cm slightly irregular hypodense focus in the inferior right lobe of the liver. Unchanged . Spleen is intact. Stomach is large. There is no pancreatic mass. There are clips from cholecystecto my. The bile ducts are not dilated. There is 1 cm hypodensity in the lateral right lobe of the liver. Unchanged. There is no adrenal mass. Kidneys have normal size. There is no hydronephrosis. There is no retroperi toneal adenopathy. Appendix appears normal. Urinary bladder is intact. There is no inguinal hernia. T here are multiple sigmoid diverticula. There is no diverticulitis. There is 5 cm diverticulum of the urinary bladder on the right side. Unchanged. There is minimal fat stranding around the kidneys. Ther e is no ascites. There is no free air. There is no sign of a bowel obstruction. The lumbar and thorac ic vertebra appear intact. There is no compression fracture. Bony pelvis is intact. The hip joints ar e intact. IMPRESSION: There is some mild interstitial infiltrate and subsegmental atelectasis in the posterior lung nixon which is the same or slightly improved compared to last exam. Small pericardial effusion unchanged. Hypodense liver lesions unchanged. The density of the larger lesion is 10 and probably a cyst. There is clearing of the left side renal obstruction compared to last exam. There are multiple sigmoi d diverticula without diverticulitis. No evidence of primary malignant tumor in the chest abdomen pelvis.
[2020-10-26 04:42] VITALS: RESP 16; TEMP 97.5
[2020-10-26] MEDS: DEXAMETHASONE SOD PHOSPHATE 4 MG/ML 1 ML VIAL IV SCH ×4 (06:10→16:48)
[2020-10-26] MEDS: TAMSULOSIN 0.4 MG CAP.ER.24H PO SCH (07:49)
[2020-10-26] MEDS: MULTIVITAMINS, THERA 1 EACH TAB PO SCH (07:49)
[2020-10-26] MEDS: FUROSEMIDE 20 MG TAB PO SCH (07:49)
[2020-10-26] MEDS: METOPROLOL SUCCINATE (ER) 25 MG TAB.ER.24H PO SCH (07:49)
[2020-10-26] MEDS: levETIRAcetam 500 MG TAB PO SCH (07:49)
[2020-10-26 11:31] VITALS: BP 127/83; PULSE 107
--- NOTE | 2020-10-26 14:06 | P.PN ---
Subjective Progress Note Date: 10/26/20 The patient seen at bedside and he is accompanied by family members and he states that he is doing great. He denies of any neurological deficit. Objective - Vital Signs Vital signs: Vital Signs Temp 97.5 F L 10/26/20 11:12 Pulse 107 H 10/26/20 11:12 Resp 16 10/26/20 11:12 BP 127/83 10/26/20 11:12 Pulse Ox 93 L 10/26/20 11:12 Intake & Output 10/25/20 10/26/20 10/26/20 18:59 06:59 18:59 Intake Total 1820 Balance 1820 Weight 97.976 kg Intake: Intake, IV Titration 1200 Amount Sodium Chloride 0.9% 1, 1200 000 ml @ 100 mls/hr IV . Q10H [facility] Rx#:[id number] Oral 620 Other: Voiding Method Toilet Toilet Toilet Urinal Urinal # Voids 4 # Bowel Movements 1 - Exam GENERAL: The patient is lying in bed and is not in acute distress. NEUROLOGICAL: Higher mental function: The patient is awake, alert, oriented to self, place and time. Patient is following commands. No aphasia and no neglect. Cranial nerves: The pupils are round, equal and reactive to light and accommodation. Visual nixon are full to confrontation throughout. Extraocular movement is intact no nystagmus is noted. Facial sensation is normal to touch throughout. The facial strength is normal throughout. Hearing is normal bilaterally to hand rub. Tongue is midline and moved [id number] without any difficulty. No dysarthria is noted. Shoulder shrug is normal bilaterally. Motor: Gait is deferred. The strength is 5 over 5 throughout. Normal tone and bulk. Cerebellum: Normal finger to nose heel to jones bilaterally. Sensation: Sensation is normal to touch throughout. Reflexes (right/left): 2+ throughout. Plantars are downgoing bilaterally. WORK-UP: * CT of the head is reported as mass adjacent to the cerebral falx on the left side with surrounding 4 cm area of cortical white matter edema. This cons istent with a tumor and could be a meningioma with surrounding reaction. Intra-axial tumor not excluded that. Contrast computed tomography scan or an MR scan would be helpful for further evaluation if clinically indicated. I personally reviewed the CT of the head and I felt that it's the medial left frontal suspicious for mass with surrounding edema. * MR the brain and as reported as confirmation of new high left frontal mass on MRI. Intra-axial location. Hyperdensity noted on the CT. No significant postcontrast enhancement but there is a local mass affect noted. Neoplasm need to be considered. Hemorrhagic metastasis lesion is in the differential. Primary brain neoplasm is also on differential. Lack of enhancement is very unusual. * EEG on 10/25/2020 is abnormal. There are rare focal slowing over the left frontal is consistent with the patient history of frontal mass. Otherwise the background is normal and there is no epileptiform discharges or seizure on the EEG. * CT abdomen chest and pelvis is reported as no evidence of primary malignant tumor in the chest abdomen or pelvis. * - Labs CBC & Chem 7: 10/25/20 06:29 10/25/20 06:29 Labs: Microbiology - Last 24 Hours (Table) 10/24/20 05:27 Urine Culture - Preliminary Urine,Clean Catch Coagulase Negative Staph Assessment and Plan Assessment: Left medial frontal mass with surrounding vasogenic edema. For now appears as primary brain neoplasm. Episode of "unusual noise" and unable for to arouse patient" seems like new onset seizure due to above. Atrial fibrillation on Eliquis Hypertension--currently mildly to moderate elevated. Hyperlipidemia History of Prediabetes Plan: * Continue Keppra 500 mg 1 tablet twice a day for seizure prophylaxis. Notified the patient about the side-effects of medications causing worsening of mood/behavior. * Continue Decadron 4 mg IV every 6 hours. We'll defer management of his the glucose to the primary team. * Continue on seizure precaution and seizure pads. * Q4 hour neuro checks. * Patient was notified as outpatient he needs to follow-up with neurosurgeon within 1-2 weeks. He prefers to see someone over [facility]. * Oncology team and the radiation oncology team are consulted. * Cardiology is consulted. * For anticoagulation use if needed (use heparin drip to avoid hemorrhagic conversion and keep PTT between 45-60 and avoid any boluses) for now to avoid any hemorrhagic conversion. * Cardiology is on board. * We'll defer the rest of the medical management to the primary team. * The patient needs to follow-up with neurologist (Recommend following-up with Dr. Venancio Barrientos [address] [address], [place] [address] ) and neurosurgeon as outpatient within 1-2 weeks. From a neurological perspective the patient is clear and he can be discharged on Decadron 4 mg every 6 hours by mouth and to follow-up with a neurosurgeon for modification of the medication. As well as to follow-up with a neurologist as an outpatient. Regarding the use of anticoagulation patient was notified there is a possible increased risk of the possible bleed with use of anticoagulation benefits possi asher outweigh the risk since he has Atrial fibrillation which can lead to stroke, clots throughout body (will defer use of anticoagulation to the primary team). The plan is discussed with the patient and his . There is no further neurological work-up. Elías Infante M.D. Neuro-hospitalist Time with Patient: Less than 30
--- NOTE | 2020-10-26 15:43 | P.DS ---
Providers Date of admission: 10/24/20 16:32 Expected date of discharge: 10/26/20 Attending physician: Alex Rico Consults: 10/24/20 09:39 Consult Physician Routine Consulting Provider: Elías Infante Consult Reason/Comments: intracranial mass, syncopr Do you want consulting provider notified?: Yes 10/24/20 13:22 Consult Physician Routine Consulting Provider: Siva Shelley Consult Reason/Comments: brain tumor Do you want consulting provider notified?: Yes 10/24/20 16:53 Consult Physician Routine Consulting Provider: Ulises Dominguez Consult Reason/Comments: Brain mass Do you want consulting provider notified?: Yes Primary care physician: Maryanne Henson [place] [facility] Course: Diagnosis on discharge: Episode of unresponsiveness, could be related to underlying seizure Intracranial mass, in the left anterior cerebral falx , on computed tomography scan of the brain done in the emergency room , neurology consultation was requested Underlying history of atrial fibrillation maintained on anticoagulation with Eliquis Underlying history of hypertension Underlying history of hyperlipidemia Underlying history of benign prostatic hypertrophy Underlying history of osteoarthritis Hospital course: James Coello, is a year old male who presented to [facility] emergency room with a chief complaint of episodes of unresponsiveness. Patient states that his told him that he was breathing heavily last night, she tried to awaken him but he was not able to wake up for about 15 minutes, his called EMS and patient was brought into emergency room. He was evaluated in the emergency room vital examination on presentation revealed a temperature of 99 pulse 113 respiration 18 blood pressure 160/81 pulse ox 90% on room air Laboratory data reveals a white blood count of 6.3 hemoglobin 16.3 platelet count 115 lactic acid 2.4 troponin level less than 0.012 urine analysis revealed positive leukocyte esterase and 14 white blood cells in high power field Testing in the emergency room revealed computed tomography scan of the brain revealed mass at just sent to the cerebral falx in the left side with surrounding 4 cm area of cortical white matter edema Patient was admitted to medical floor for further evaluation and treatment neurology and cardiology and oncology consultation were requested Past medical history is significant for history of hypertension, history of atrial fibrillation, history of hyperlipidemia, history of benign prostatic hypertrophy and history of osteoarthritis On review of systems patient is alert and oriented 3 in no distress there is no fever or chills no headaches no dizziness at this time, he states that he had occasional episodes of headache and dizziness over the last few weeks, no chest pain no shortness of breath no cough no nausea or vomiting no abdominal pain no diarrhea no blood in the stools no burning with urination no frequency or u rgency and no hematuria. On 10/25/2020 Patient was seen and examined on the medical floor, he is alert and oriented x 3 in no distress, he denies any complaints there is no fever or chills no headache or dizziness no chest pain no shortness of breath no palpitation no cough no nausea or vomiting no abdominal pain no diarrhea no blood in the stools no burning with urination no frequency or urgency and no hematuria, there is no weakness or numbness in any of the extremities no change in vision speech or gait. Patient remained asymptomatic, he is maintained on IV Keppra and IV Decadron neurology recommendation, he was evaluated by oncology, computed tomography scan of the chest abdomen and pelvis were ordered to assess whether this is a primary brain tumor versus metastatic brain disease, at this time will continue with current management awaiting testing results and further recommendation from oncology. On 10/26/2020 patient was seen and examined on the medical floor he is alert and oriented 3 in no apparent distress there is no fever or chills no headache or dizziness no chest pain no shortness of breath no cough no nausea or vomiting no abdominal pain no diarrhea and no urinary symptoms, there is no weakness or numbness in any of the extremities there is no change in vision speech or gait. Patient was evaluated by neurology and by oncology and was cleared for discharge. In regard to his medications after prolonged discussion with oncology, recommendation is to withhold Eliquis at this time until evaluated by neurosurgery, as his risk of intracranial bleeding is higher than the risk of blood clot related to atrial fibrillation. Patient was started on Decadron 4 mg by mouth every 6 hours, and he should continue with that until evaluated by neurosurgery, he was also given a prescription for Keppra 500 mg twice daily. Patient should follow up with his primary care physician Dr. Henson within 1 week, he should also follow-up with neurologist and neurosurgeon for possible brain biopsy in the next 1-2 weeks The patient needs to follow-up with neurologist : The Neurohospitalist Dr. Elías Infante has recommended: following-up with Dr. Venancio Barrientos [address] [address], [place] [address] ) and neurosurgeon as outpatient within 1-2 weeks. If you need any further information in regard to Mr. James Coello hospitalization, please do not hesitate to contact me Rae Rico MD Patient Condition at Discharge: Fair Plan - Discharge Summary Discharge Rx Participant: Yes New Discharge Prescriptions: New levETIRAcetam [Keppra] 500 mg PO Q12HR tab Dexamethasone [Decadron] 4 mg PO Q6HR 15 Days #90 tablet Continue Nitroglycerin Sl Tabs [Nitrostat] 0.4 mg SUBLINGUAL Q5M PRN tab PRN Reason: Chest Pain Glucosamine HCl/Chondroitin York [Glucosamine-Chondroitin Cap] 1 cap PO DAILY Furosemide [Lasix] 20 mg PO DAILY Atorvastatin [Lipitor] 80 mg PO HS Tamsulosin [Flomax] 0.4 mg PO DAILY Multivitamins, Thera [Multivitamin (formulary)] 1 tab PO DAILY Metoprolol Succinate [Toprol XL] 75 mg PO DAILY Discontinued Apixaban [Eliquis] 5 mg PO BID tab Discharge Medication List Nitroglycerin Sl Tabs [Nitrostat] 0.4 mg SUBLINGUAL Q5M PRN tab 01/27/17 [Rx] Furosemide [Lasix] 20 mg PO DAILY 09/23/20 [History] Glucosamine HCl/Chondroitin York [Glucosamine-Chondroitin Cap] 1 cap PO DAILY 09/23/20 [History] Metoprolol Succinate [Toprol XL] 75 mg PO DAILY 09/23/20 [History] Multivitamins, Thera [Multivitamin (formulary)] 1 tab PO DAILY 09/23/20 [History] Tamsulosin [Flomax] 0.4 mg PO DAILY 09/23/20 [History] Atorvastatin [Lipitor] 80 mg PO HS 10/24/20 [History] Dexamethasone [Decadron] 4 mg PO Q6HR 15 Days #90 tablet 10/26/20 [Rx] levETIRAcetam [Keppra] 500 mg PO Q12HR tab 10/26/20 [Rx] Follow up Appointment(s)/Referral(s): Maryanne Henson MD [Primary Care Provider] - 1-2 days
--- NOTE | 2020-10-26 16:42 | P.PN ---
Subjective Progress Note Date: 10/26/20 Patient is clinically fairly stable. He denied any falls. He has been able to family to the bathroom. He denies any dizziness at rest. No significant headaches or visual complaints. Objective - Vital Signs Vital signs: Vital Signs Temp 97.5 F L 10/26/20 11:12 Pulse 107 H 10/26/20 11:12 Resp 16 10/26/20 11:12 BP 127/83 10/26/20 11:12 Pulse Ox 93 L 10/26/20 11:12 Intake & Output 10/25/20 10/26/20 10/26/20 18:59 06:59 18:59 Intake Total 1820 720 Balance 1820 720 Weight 97.976 kg Intake: Intake, IV Titration 1200 Amount Sodium Chloride 0.9% 1, 1200 000 ml @ 100 mls/hr IV . Q10H [facility] Rx#:[id number] Oral 620 720 Other: Voiding Method Toilet Toilet Toilet Urinal Urinal # Voids 4 4 # Bowel Movements 1 - Constitutional General appearance: Present: no acute distress - EENT Eyes: Present: EOMI ENT: Present: hearing grossly normal, normal oropharynx - Respiratory Respiratory: bilateral: CTA - Cardiovascular Rhythm: irregularly irregular Heart sounds: normal: S1, S2 - Gastrointestinal General gastrointestinal: Present: normal bowel sounds, soft - Neurologic Neurologic: Present: CNII-XII intact - Musculoskeletal Musculoskeletal: Present: generalized weakness, strength equal bilaterally - Labs CBC & Chem 7: 10/25/20 06:29 10/25/20 06:29 Labs: Microbiology - Last 24 Hours (Table) 10/24/20 05:27 Urine Culture - Preliminary Urine,Clean Catch Coagulase Negative Staph Assessment and Plan (1) Frontal mass of brain Narrative/Plan: The patient's CT of the chest abdomen and pelvis did not show any lesions suspicious for malignancy. Lesion in the liver had been previously noted on other imaging, which was consistent with a cyst. - The results and implications were discussed in detail with the patient and his family. He was advised that he does not appear to have any obvious primary malignancy on CT scan and therefore no targeted for biopsy. - In this situation any diagnostic procedures would have to be directed to the main mass. It was again discussed that given the lack of enhancement on MRI a benign etiology is still possible. Essentially the patient will need a neurosurgical evaluation, for brain biopsy. He would therefore need to be referred to a tertiary institution for the same. - If the patient is felt to be stable from a medical standpoint he can potentially be discharged and have been neurosurgical evaluation as an outpatient. Otherwise intrahospital transfer can be considered. Would defer this decision to IM. - Case also discussed with IM. I would recommend holding off on anticoagulation at this point as the patient is evaluated by neurosurgery. If the mass is malignant, this would have risk of hemorrhage. In addition the patient still remains at least at some risk for falls. Also imaging had mention the possibility of hemorrhage in the mass. Therefore based on the above, risk versus benefit favors holding anticoagulation and this time, my opinion. Current Visit: Yes Status: Acute Priority: High Code(s): G93.89 - OTHER SPECIFIED DISORDERS OF BRAIN SNOMED Code(s): 133900465
== END 2020-10-26 17:30 | disposition home or self-care (01) | DRG 54 ==
LOC: EC 05:08 → 6NMEDSUR 06:11 → OBSVTOIN 16:32 → 5NMEDONC 19:00
PROVIDERS: ADMIT Internal Medicine; ATTEND Internal Medicine
DX: D32.9 Benign neoplasm of meninges, unspecified (principal); G93.6 Cerebral edema; I48.21 Permanent atrial fibrillation; E11.9 Type 2 diabetes mellitus without complications; K76.89 Other specified diseases of liver; Z20.822 Contact with and (suspected) exposure to COVID-19; R00.0 Tachycardia, unspecified; R55 Syncope and collapse; E78.5 Hyperlipidemia, unspecified; I10 Essential (primary) hypertension; R13.10 Dysphagia, unspecified; R56.9 Unspecified convulsions; K21.9 Gastro-esophageal reflux disease without esophagitis; N40.0 Benign prostatic hyperplasia without lower urinary tract symptoms; F32.9 Major depressive disorder, single episode, unspecified; Z98.42 Cataract extraction status, left eye; Z98.41 Cataract extraction status, right eye; Z96.1 Presence of intraocular lens; Z90.79 Acquired absence of other genital organ(s); Z85.828 Personal history of other malignant neoplasm of skin; Z86.010 Personal history of colon polyps; Z87.891 Personal history of nicotine dependence; Z80.3 Family history of malignant neoplasm of breast; Z79.01 Long term (current) use of anticoagulants; Z79.899 Other long term (current) drug therapy; Z87.442 Personal history of urinary calculi; Z91.81 History of falling
CPT/HCPCS: 36415; 70450; 70553; 71045; 71260; 74177; 80053; 80061; 81001; 82550; 83605; 83880; 84484; 85025; 85379; 85610; 85730; 87077; 87086; 87186; 87635; 93005; 93306; 95816; 99285

== ENCOUNTER 2020-11-06 17:16 | Inpatient (IN) | payer MEDICARE ==
[2020-11-06] MEDS ORDERED: SODIUM CHLORIDE 0.9% 1,000 ML IV STA (17:39)
[2020-11-06] MEDS ORDERED: SODIUM CHLORIDE 0.9% 500 ML 500 ML IV STA (17:39)
--- NOTE | 2020-11-06 18:05 | ED ---
Arrhythmia/Palpitations HPI - General Chief Complaint: Arrhythmia/Palpitations Stated Complaint: AFIB Time Seen by Provider: 11/06/20 17:34 Source: patient, RN notes reviewed Mode of arrival: wheelchair Limitations: no limitations - History of Present Illness Initial Comments: 85-year-old male with a history for likely states she's been having palpitations and increased heart rate consistent with A. fib with some shortness of breath he denies any chest pain when I asked him however. He was recently diagnosed with a brain tumor taken off his anticoagulant. No fevers chills nausea vomiting sweats. He does state the symptoms started about 1 hour prior to arrival. He is on oral beta blockers MD Complaint: palpitations, atrial fibrillation - Related Data Home Medications Medication Instructions Recorded Confirmed Furosemide [Lasix] 20 mg PO DAILY 09/23/20 11/06/20 Glucosamine HCl/Chondroitin York 1 cap PO DAILY 09/23/20 11/06/20 [Glucosamine-Chondroitin Cap] Metoprolol Succinate [Toprol XL] 75 mg PO DAILY 09/23/20 11/06/20 Multivitamins, Thera [Multivitamin 1 tab PO DAILY 09/23/20 11/06/20 (formulary)] Tamsulosin [Flomax] 0.4 mg PO DAILY 09/23/20 11/06/20 Atorvastatin [Lipitor] 80 mg PO HS 10/24/20 11/06/20 Previous Rx's Medication Instructions Recorded Nitroglycerin Sl Tabs [Nitrostat] 0.4 mg SUBLINGUAL Q5M PRN tab 01/27/17 Dexamethasone [Decadron] 4 mg PO Q6HR 15 Days #90 tablet 10/26/20 levETIRAcetam [Keppra] 500 mg PO Q12HR tab 10/26/20 Allergies Allergy/AdvReac Type Severity Reaction Status Date / Time No Known Allergies Allergy Verified 11/06/20 18:50 Review of Systems ROS Statement: Those systems with pertinent positive or pertinent negative responses have been documented in the HPI. ROS Other: All systems not noted in ROS Statement are negative. 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 Past Anesthesia/Blood Transfusion Reactions: No Reported Reaction Past Psychological History: Depression Smoking Status: Never smoker Past Alcohol Use History: None Reported Past Drug Use History: None Reported - Past Family History Father Additional Family Medical History / Comment(s): FATHER AT THE AGE OF 75 YRS UNKNOWN CAUSE. FATHER HAD STOMACH ISSUES. Mother Family Medical History: Cancer Additional Family Medical History / Comment(s): MOTHER OF BREAST CANCER TH AT METASTASIZED TO HER BONES AT THE AGE OF 80YRS. General Exam - General Exam Comments Initial Comments: This is a well-developed well-nourished awake alert oriented times 3 male Limitations: no limitations General appearance: alert, in no apparent distress Head exam: Present: atraumatic, normocephalic, normal inspection Eye exam: Present: normal appearance, PERRL, EOMI. Absent: scleral icterus, conjunctival injection, periorbital swelling ENT exam: Present: normal exam, mucous membranes moist Neck exam: Present: normal inspection. Absent: tenderness, meningismus, lymphadenopathy Respiratory exam: Present: normal lung sounds bilaterally. Absent: respiratory distress, wheezes, rales, rhonchi, stridor Cardiovascular Exam: Present: tachycardia, irregular rhythm. Absent: systolic murmur, diastolic murmur, rubs, gallop, clicks GI/Abdominal exam: Present: soft, normal bowel sounds. Absent: distended, tenderness, guarding, rebound, rigid Extremities exam: Present: normal inspection, full ROM, normal capillary refill. Absent: tenderness, pedal edema, joint swelling, calf tenderness Back exam: Present: normal inspection Neurological exam: Present: alert, oriented X3, CN II-XII intact Psychiatric exam: Present: normal affect, normal mood Skin exam: Present: warm, dry, intact, normal color. Absent: rash Course Vital Signs 11/06/20 11/06/20 11/06/20 17:18 17:41 18:00 Temperature 98.2 F Pulse Rate 40 L 141 H 115 H Pulse Rate [ [employer] ] Respiratory 18 16 Rate Blood Pressure 142/78 148/138 O2 Sat by Pulse 95 Oximetry 11/06/20 11/06/20 18:08 20:15 Temperature Pulse Rate 126 H Pulse Rate [ 140 H [employer]ician ] Respiratory 18 Rate Blood Pressure 158/143 O2 Sat by Pulse 97 Oximetry EKG Findings - EKG Results: EKG: interpreted by ERMD (Atrial fibrillation rate of 120 QRS 104 QT since QTC 344/46 left anterior fascicular block nonspecific ST-T wave configuration.) Medical Decision Making - Medical Decision Making Reevaluation the patient finds he still in A. fib with rapid ventricular response no chest pain no shortness of breath at this time. After IV fluids his heart rate actually went up not down. Be given IV beta lacey she'll be admitted with consultation by cardiology. Discussed the case with Dr. Rico - Lab Data Result diagrams: 11/06/20 17:56 11/06/20 17:56 Lab Results 11/06/20 11/06/20 11/06/20 Range/Units 17:56 17:56 17:56 WBC 14.2 H (3.8-10.6) k/uL RBC 5.69 (4.30-5.90) m/uL Hgb 19.2 H* (13.0-17.5) gm/dL Hct 57.6 H* (39.0-53.0) % MCV 101.3 H (80.0-100.0) fL MCH 33.7 (25.0-35.0) pg MCHC 33.2 (31.0-37.0) g/dL RDW 14.4 (11.5-15.5) % Plt Count 69 L (150-450) k/uL MPV 10.8 Neutrophils % 91 % Lymphocytes % 3 % Monocytes % 5 % Eosinophils % 0 % Basophils % 0 % Neutrophils # 12.9 H (1.3-7.7) k/uL Lymphocytes # 0.4 L (1.0-4.8) k/uL Monocytes # 0.7 (0-1.0) k/uL Eosinophils # 0.1 (0-0.7) k/uL Basophils # 0.0 (0-0.2) k/uL Macrocytosis Slight PT 14.1 H (9.0-12.0) sec INR 1.4 H (<1.2) APTT 22.8 (22.0-30.0) sec Sodium 134 L (137-145) mmol/L Potassium 4.4 (3.5-5.1) mmol/L Chloride 104 (98-107) mmol/L Carbon Dioxide 25 (22-30) mmol/L Anion Gap 5 mmol/L BUN 39 H (9-20) mg/dL Creatinine 1.23 (0.66-1.25) mg/dL Est GFR (CKD-EPI)AfAm 62 (>60 ml/min/1.73 sqM) Est GFR (CKD-EPI)NonAf 54 (>60 ml/min/1.73 sqM) Glucose 116 H (74-99) mg/dL Calcium 8.4 (8.4-10.2) mg/dL Magnesium 2.4 H (1.6-2.3) mg/dL Total Bilirubin 1.1 (0.2-1.3) mg/dL AST 224 H (17-59) U/L ALT 572 H (4-49) U/L Alkaline Phosphatase 83 (38-126) U/L Creatine Kinase 47 L (55-170) U/L Troponin I (0.000-0.034) ng/mL Total Protein 5.5 L (6.3-8.2) g/dL Albumin 2.8 L (3.5-5.0) g/dL TSH 0.556 (0.465-4.680) mIU/L 11/06/20 Range/Units 17:56 WBC (3.8-10.6) k/uL RBC (4.30-5.90) m/uL Hgb (13.0-17.5) gm/dL Hct (39.0-53.0) % MCV (80.0-100.0) fL MCH (25.0-35.0) pg MCHC (31.0-37.0) g/dL RDW (11.5-15.5) % Plt Count (150-450) k/uL MPV Neutrophils % % Lymphocytes % % Monocytes % % Eosinophils % % Basophils % % Neutrophils # (1.3-7.7) k/uL Lymphocytes # (1.0-4.8) k/uL Monocytes # (0-1.0) k/uL Eosinophils # (0-0.7) k/uL Basophils # (0-0.2) k/uL Macrocytosis PT (9.0-12.0) sec INR (<1.2) APTT (22.0-30.0) sec Sodium (137-145) mmol/L Potassium (3.5-5.1) mmol/L Chloride (98-107) mmol/L Carbon Dioxide (22-30) mmol/L Anion Gap mmol/L BUN (9-20) mg/dL Creatinine (0.66-1.25) mg/dL Est GFR (CKD-EPI)AfAm (>60 ml/min/1.73 sqM) Est GFR (CKD-EPI)NonAf (>60 ml/min/1.73 sqM) Glucose (74-99) mg/dL Calcium (8.4-10.2) mg/dL Magnesium (1.6-2.3) mg/dL Total Bilirubin (0.2-1.3) mg/dL AST (17-59) U/L ALT (4-49) U/L Alkaline Phosphatase (38-126) U/L Creatine Kinase (55-170) U/L Troponin I 0.022 (0.000-0.034) ng/mL Total Protein (6.3-8.2) g/dL Albumin (3.5-5.0) g/dL TSH (0.465-4.680) mIU/L - Radiology Data Radiology results: report reviewed, image reviewed ([place]. reviewed no acute findings) Disposition Clinical Impression: Atrial fibrillation with RVR, Dehydration Disposition: ADMITTED IP TO THIS HOSP Condition: Fair Referrals: Maryanne Henson MD [Primary Care Provider] - 1-2 days
--- NOTE | 2020-11-06 18:21 | XR ---
EXAMINATION TYPE: XR chest 2V DATE OF EXAM: 11/06/2020 COMPARISON: 10/24/2020 HISTORY: 3 views TECHNIQUE: FINDINGS: There is no heart failure nor confluent pneumonic infiltrate. Heart is enlarged. There are no hilar masses. There is no pleural effusion. Bony thorax is intact. There is old right-sided rib fr acture. IMPRESSION: Cardiomegaly. No pulmonary consolidation or heart failure. No adverse change.
[2020-11-06 18:23] LABS: Basophils % (A) 0 %; Eosinophils # (A) 0.1 k/uL (0-0.7); Eosinophils % (A) 0 %; Lymphocytes # (A) 0.4 k/uL (1.0-4.8); Lymphocytes % (A) 3 %; MCH 33.7 pg (25.0-35.0); MCHC 33.2 g/dL (31.0-37.0); MCV 101.3 fL (80.0-100.0); Macrocytosis Slight; Mean Platelet Volume 10.8; Monocytes # (A) 0.7 k/uL (0-1.0); Monocytes % (A) 5 %; Neutrophils # (A) 12.9 k/uL (1.3-7.7); Neutrophils % (A) 91 %; RBC 5.69 m/uL (4.30-5.90); RDW 14.4 % (11.5-15.5); WBC 14.2 k/uL (3.8-10.6)
[2020-11-06 18:25] LABS: Albumin 2.8 g/dL (3.5-5.0); Calcium 8.4 mg/dL (8.4-10.2); Magnesium 2.4 mg/dL (1.6-2.3); Potassium 4.4 mmol/L (3.5-5.1); Total Bilirubin 1.1 mg/dL (0.2-1.3); Total Protein 5.5 g/dL (6.3-8.2)
[2020-11-06 18:27] LABS: HCT 57.6 % (39.0-53.0); HGB 19.2 gm/dL (13.0-17.5)
[2020-11-06 18:29] LABS: INR 1.4 (<1.2); Partial Thromboplastin Time 22.8 sec (22.0-30.0); Prothrombin Time 14.1 sec (9.0-12.0)
[2020-11-06 18:41] LABS: Platelet Count 69 k/uL (150-450)
[2020-11-06] MEDS ORDERED: METOPROLOL TARTRATE 5 MG/5 ML VIAL IVP STA (19:57)
[2020-11-06] MEDS ORDERED: NALOXONE 0.4 MG/ML 1 ML VIAL IV PRN (20:39)
[2020-11-06] MEDS ORDERED: NITROGLYCERIN SL TABS 0.4 MG TAB SUBLINGUAL PRN (20:41)
[2020-11-06] MEDS ORDERED: ATORVASTATIN 80 MG TAB PO SCH (21:00)
[2020-11-07] MEDS: dexAMETHasone 4 MG TAB PO SCH ×5 (03:29→23:54)
[2020-11-07] MEDS: levETIRAcetam 500 MG TAB PO SCH ×3 (03:29→21:22)
[2020-11-07] MEDS: SODIUM CHLORIDE 0.9% 1,000 ML IV SCH ×3 (03:29→23:15)
[2020-11-07] MEDS ORDERED: NON FORMULARY DRUG (Glucosamine Hcl/Chondroitin Su [Glucosamine-Chondroitin Cap] 1 EACH Ca PO SCH (09:00)
[2020-11-07] MEDS ORDERED: METOPROLOL SUCCINATE (ER) 25 MG TAB.ER.24H PO SCH (09:00)
[2020-11-07] MEDS ORDERED: DIGOXIN 250 MCG/ML 2 ML AMP IVP ONE (09:12)
[2020-11-07] MEDS: METOPROLOL TARTRATE 25 MG TAB PO SCH ×2 (09:49→21:21)
[2020-11-07] MEDS: TAMSULOSIN 0.4 MG CAP.ER.24H PO SCH (09:49)
[2020-11-07] MEDS: MULTIVITAMINS, THERA 1 EACH TAB PO SCH (09:49)
[2020-11-07] MEDS: FUROSEMIDE 20 MG TAB PO SCH (09:49)
--- NOTE | 2020-11-07 10:33 | P.CRDCN ---
History of Present Illness Consult date: 11/07/20 History of present illness: HISTORY OF PRESENT ILLNESS: This is a 85-year-old male with a past medical history significant for intracranial mass, chronic atrial fibrillation not on anticoagulation, hypertension, and hyperlipidemia. Patient follows in the office with Dr. Chavarria. We have been asked to see the patient in consultation for A. fib with RVR. Patient examined at the bedside in the emergency room. Patient was recently hospitalized later this month and found to have intercranial mass. Patient is not on long-term anticoagulation secondary to this recent diagnosis. The patient presented to the hospital secondary to shortness of breath and palpitations. Patient was found to be in A. fib with RVR. Patient currently denies chest pain or pressure. He denies shortness of breath. He reports mild palpitations. Telemetry reveals atrial fibrillation with a heart rate in the 130s. EKG reveals A. fib with RVR Chest xray cardiomegaly. No pulmonary consolidation or heart failure. No adverse change. Laboratory data: WBC 14.2. Hemoglobin 19.2. Platelet count 69. Sodium 134. Potassium 4.4. BUN 39. Creatinine 1.23. Magnesium 2.4. AST 224. ALT 572. TSH 0.556. Current home cardiac medications include metoprolol succinate 75 mg daily, Lasix 20 mg daily, Lipitor 80 mg at night Most recent echocardiogram obtained in October 2020 revealed moderate global hypokinesis of LV. Ejection fraction 30-35%. Trace aortic regurgitation. Mild aortic stenosis. Moderate mitral regurgitation. Moderate tricuspid regurgitation. Moderate pulmonary hypertension. Patient underwent Lexiscan stress test in March 2020 revealing evidence of prior anterior apical myocardial infarction with LV systolic dysfunction without any ischemia. Ejection fraction at that time was estimated at 48%. REVIEW OF SYSTEMS: At the time of my exam: CONSTITUTIONAL: Denies fever or chills. HEENT: Denies blurred vision, vision changes, or eye pain. Denies hemoptysis CARDIOVASCULAR: Denies chest pain. Denies orthopnea. Denies PND. Reports mild palpitations RESPIRATORY: Denies shortness of breath. GASTROINTESTINAL: Denies abdominal pain. Denies nausea or vomiting. HEMATOLOGIC: Denies bleeding disorders. GENITOURINARY: Denies any blood in urine. SKIN: Denies pruitis. Denies rash. PHYSICAL EXAM: VITAL SIGNS: Reviewed. GENERAL: Well-developed in no acute distress. HEENT: Head is normocephalic. Pupils are equal, round. Sclerae anicteric. Mucous membranes of the mouth are moist. Neck supple. No JVD or thyromegaly LUNGS: Respirations even and unlabored. Lungs essentially clear to auscultation bilaterally. HEART: Tachycardic. Irregular rate and rhythm. S1 and S2 heard. Systolic murmur noted. ABDOMEN: Soft. Nondistended. Nontender. EXTREMITIES: Normal range of motion. No clubbing or cyanosis. Peripheral pulses intact. No lower extremity edema NEUROLOGIC: Awake and alert. Oriented x 3. ASSESSMENT: Chronic persistent atrial fibrillation with RVR, not on long-term anticoagulation secondary to intracranial mass Recent diagnosis of intracranial mass Chronic systolic congestive heart failure, ejection fraction 30-35% Hypertension Hyperlipidemia Transaminitis Leukocytosis Thrombocytopenia PLAN: No need to repeat echocardiogram as this was performed earlier this month Increase metoprolol to 75 mg twice a day Patient is not on anticoagulation secondary to recent diagnosis of intracranial mass Digoxin 250mcg IV push 1 dose now Begin oral digoxin 125mcg every 48 hours starting tomorrow Hold statin secondary to transaminitis Further recommendations pending patient's course Nurse practitioner note has been reviewed by physician. Signing provider agrees with the documented findings, assessment, and plan of care. 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 Past Anesthesia/Blood Transfusion Reactions: No Reported Reaction Past Psychological History: Depression Smoking Status: Never smoker Past Alcohol Use History: None Reported Past Drug Use History: None Reported - Past Family History Father Additional Family Medical History / Comment(s): FATHER AT THE AGE OF 75 YRS UNKNOWN CAUSE. FATHER HAD STOMACH ISSUES. Mother Family Medical History: Cancer Additional Family Medical History / Comment(s): MOTHER OF BREAST CANCER THAT METASTASIZED TO HER BONES AT THE AGE OF 80YRS. Medications and Allergies Home Medications Medication Instructions Recorded Confirmed Type Nitroglycerin Sl Tabs [Nitrostat] 0.4 mg SUBLINGUAL Q5M PRN tab 01/27/17 11/06/20 Rx Furosemide [Lasix] 20 mg PO DAILY 09/23/20 11/06/20 History Glucosamine HCl/Chondroitin York 1 cap PO DAILY 09/23/20 11/06/20 History [Glucosamine-Chondroitin Cap] Metoprolol Succinate [Toprol XL] 75 mg PO DAILY 09/23/20 11/06/20 History Multivitamins, Thera [Multivitamin 1 tab PO DAILY 09/23/20 11/06/20 History (formulary)] Tamsulosin [Flomax] 0.4 mg PO DAILY 09/23/20 11/06/20 History Atorvastatin [Lipitor] 80 mg PO HS 10/24/20 11/06/20 History Dexamethasone [Decadron] 4 mg PO Q6HR 15 Days #90 tablet 10/26/20 11/06/20 Rx levETIRAcetam [Keppra] 500 mg PO Q12HR tab 10/26/20 11/06/20 Rx Allergies Allergy/AdvReac Type Severity Reaction Status Date / Time No Known Allergies Allergy Verified 11/06/20 18:50 Physical Exam Vitals: Vital Signs Temp Pulse Pulse Resp BP Pulse Ox 11/07/20 09:51 130 H 18 134/102 99 11/07/20 05:49 98.1 F 107 H 18 140/72 97 11/06/20 22:41 121 H 16 102/60 97 11/06/20 20:15 126 H 18 158/143 97 11/06/20 18:08 140 H 11/06/20 18:00 115 H 16 148/138 95 11/06/20 17:41 141 H 11/06/20 17:18 98.2 F 40 L 18 142/78 Intake and Output 11/06/20 11/07/20 11/07/20 22:59 06:59 14:59 Other: Weight 97.976 kg Results 11/06/20 17:56 11/06/20 17:56 Cardiac Enzymes 11/06/20 11/06/20 Range/Units 17:56 17:56 AST 224 H (17-59) U/L Troponin I 0.022 (0.000-0.034) ng/mL Coagulation 11/06/20 Range/Units 17:56 PT 14.1 H (9.0-12.0) sec APTT 22.8 (22.0-30.0) sec CBC 11/06/20 Range/Units 17:56 WBC 14.2 H (3.8-10.6) k/uL RBC 5.69 (4.30-5.90) m/uL Hgb 19.2 H* (13.0-17.5) gm/dL Hct 57.6 H* (39.0-53.0) % Plt Count 69 L (150-450) k/uL Comprehensive Metabolic Panel 11/06/20 Range/Units 17:56 Sodium 134 L (137-145) mmol/L Potassium 4.4 (3.5-5.1) mmol/L Chloride 104 (98-107) mmol/L Carbon Dioxide 25 (22-30) mmol/L BUN 39 H (9-20) mg/dL Creatinine 1.23 (0.66-1.25) mg/dL Glucose 116 H (74-99) mg/dL Calcium 8.4 (8.4-10.2) mg/dL AST 224 H (17-59) U/L ALT 572 H (4-49) U/L Alkaline Phosphatase 83 (38-126) U/L Total Protein 5.5 L (6.3-8.2) g/dL Albumin 2.8 L (3.5-5.0) g/dL Current Medications Generic Name Dose Route Start Last Admin Trade Name Freq PRN Reason Stop Dose Admin Atorvastatin Calcium 80 mg 11/06/20 21:00 11/07/20 03:29 Atorvastatin 80 Mg Tab PO Not Given HS GRACE Dexamethasone 4 mg 11/07/20 00:00 11/07/20 10:05 Dexamethasone 4 Mg Tab PO 4 mg Q6HR GRACE Administration Furosemide 20 mg 11/07/20 09:00 11/07/20 09:49 Furosemide 20 Mg Tab PO 20 mg DAILY GRACE Administration Sodium Chloride 1,000 mls @ 75 mls/hr 11/06/20 20:45 11/07/20 10:07 Saline 0.9% IV 75 mls/hr .[id number] GRACE Administration Levetiracetam 500 mg 11/06/20 21:00 11/07/20 09:49 Levetiracetam 500 Mg Tab PO 500 mg Q12HR GRACE Administration Metoprolol Tartrate 75 mg 11/07/20 09:07 11/07/20 09:49 Metoprolol Tartrate 25 Mg Tab PO 75 mg BID GRACE Administration Multivitamins 1 each 11/07/20 09:00 11/07/20 09:49 Multivitamins, Thera 1 Each Tab PO 1 each DAILY GRACE Administration Naloxone HCl 0.2 mg 11/06/20 20:39 Naloxone 0.4 Mg/Ml 1 Ml Vial IV Q2M PRN Opioid Reversal Nitroglycerin 0.4 mg 11/06/20 20:41 Nitroglycerin Sl Tabs 0.4 Mg Tab SUBLINGUAL Q5M PRN Chest Pain Tamsulosin HCl 0.4 mg 11/07/20 09:00 11/07/20 09:49 Tamsulosin 0.4 Mg Cap.Er.24h PO 0.4 mg DAILY GRACE Administration Intake and Output 11/06/20 11/07/20 11/07/20 22:59 06:59 14:59 Other: Weight 97.976 kg 11/06/20 17:56 11/06/20 17:56
[2020-11-07 11:35] LABS: Basophils % (A) 0 %; Eosinophils % (A) 0 %; HCT 54.8 % (39.0-53.0); HGB 18.5 gm/dL (13.0-17.5); Lymphocytes # (A) 0.6 k/uL (1.0-4.8); Lymphocytes % (A) 4 %; MCH 34.2 pg (25.0-35.0); MCHC 33.8 g/dL (31.0-37.0); MCV 101.3 fL (80.0-100.0); Macrocytosis Slight; Mean Platelet Volume 10.5; Monocytes # (A) 0.8 k/uL (0-1.0); Monocytes % (A) 6 %; Neutrophils # (A) 13.2 k/uL (1.3-7.7); Neutrophils % (A) 90 %; RBC 5.41 m/uL (4.30-5.90); RDW 14.6 % (11.5-15.5); WBC 14.7 k/uL (3.8-10.6)
[2020-11-07 11:41] LABS: Platelet Count 70 k/uL (150-450)
[2020-11-07 11:59] LABS: Albumin 2.4 g/dL (3.5-5.0); Calcium 8.1 mg/dL (8.4-10.2); Potassium 4.6 mmol/L (3.5-5.1); Total Bilirubin 1.3 mg/dL (0.2-1.3); Total Protein 4.9 g/dL (6.3-8.2)
--- NOTE | 2020-11-07 19:31 | P.HPIM ---
History of Present Illness H&P Date: 11/07/20 James Coello, is an 85 year old male who presented to [facility] emergency room with a chief complaint of worsening shortness of breath, and palpitation He was evaluated in the emergency room vital examination on presentation revealed a temperature of 98.2 respiration 18 blood pressure 142/78 pulse ox 95% on room air his pulse rate was 141, he was in atrial fibrillation, he was given IV metoprolol and IV digoxin in the emergency room, and was admitted to telemetry floor for further evaluation and treatment Laboratory data revealed a white blood count of 14.2 hemoglobin 19.2 platelet count 69 sodium 134 potassium 4.4 chloride 104 BUN 39 creatinine 1.23 glucose level was 116 Testing in the emergency room chest x-ray done in the emergency room revealed cardiomegaly no pulmonary consolidation no heart failure, EKG done in the emergency room revealed atrial fibrillation with rapid ventricular response and left anterior fascicular block and nonspecific ST and T-wave abnormalities. Patient was admitted to telemetry floor for further evaluation and treatment, cardiology consultation was requested. Patient was recently diagnosed with a brain tumor, at that time anticoagulation was discontinued, he was started on Decadron and Keppra. Past Medical History Past Medical History: Atrial Fibrillation, GERD/Reflux, Hyperlipidemia, Hype rtension, Osteoarthritis (OA), Prostate Disorder Additional Past Medical History / Comment(s): SKIN CA, pre-diabetes, 2 years ago brettschneider white spots on mri on brain- mri due to dizziness when patient got up and walked, dizziness never resolved, kidney stone, current cyst on liver mri of liver next week History of Any Multi-Drug Resistant Organisms: None Reported Past Surgical History: Cholecystectomy, Tonsillectomy Additional Past Surgical History / Comment(s): COLONOSCOPIES/POLYPECTOMY, TURP, CYSTOSCOPY FOR BLADDER CALCULUS REMOVAL, L INGUINAL HERNIA REPAIR, L FOOT FASCIOTOMY, ENDOSCOPIC SINUS SX, SKIN CANCER REMOVED FROM NOSE, BILATERAL CATARACT REMOVAL WITH LENS IMPLANTS. Past Anesthesia/Blood Transfusion Reactions: No Reported Reaction Past Psychological History: Depression Smoking Status: Never smoker Past Alcohol Use History: None Reported Past Drug Use History: None Reported - Past Family History Father Additional Family Medical History / Comment(s): FATHER AT THE AGE OF 75 YRS UNKNOWN CAUSE. FATHER HAD STOMACH ISSUES. Mother Family Medical History: Cancer Additional Family Medical History / Comment(s): MOTHER OF BREAST CANCER THAT METASTASIZED TO HER BONES AT THE AGE OF 80YRS. Medications and Allergies Home Medications Medication Instructions Recorded Confirmed Type Nitroglycerin Sl Tabs [Nitrostat] 0.4 mg SUBLINGUAL Q5M PRN tab 01/27/17 11/06/20 Rx Furosemide [Lasix] 20 mg PO DAILY 09/23/20 11/06/20 History Glucosamine HCl/Chondroitin York 1 cap PO DAILY 09/23/20 11/06/20 History [Glucosamine-Chondroitin Cap] Metoprolol Succinate [Toprol XL] 75 mg PO DAILY 09/23/20 11/06/20 History Multivitamins, Thera [Multivitamin 1 tab PO DAILY 09/23/20 11/06/20 History (formulary)] Tamsulosin [Flomax] 0.4 mg PO DAILY 09/23/20 11/06/20 History Atorvastatin [Lipitor] 80 mg PO HS 10/24/20 11/06/20 History Dexamethasone [Decadron] 4 mg PO Q6HR 15 Days #90 tablet 10/26/20 11/06/20 Rx levETIRAcetam [Keppra] 500 mg PO Q12HR tab 10/26/20 11/06/20 Rx Allergies Allergy/AdvReac Type Severity Reaction Status Date / Time No Known Allergies Allergy Verified 11/06/20 18:50 Physical Exam Vitals: Vital Signs Temp Pulse Pulse Resp BP Pulse Ox 11/07/20 05:49 98.1 F 107 H 18 140/72 97 11/06/20 22:41 121 H 16 102/60 97 11/06/20 20:15 126 H 18 158/143 97 11/06/20 18:08 140 H 11/06/20 18:00 115 H 16 148/138 95 11/06/20 17:41 141 H 11/06/20 17:18 98.2 F 40 L 18 142/78 Intake and Output 11/06/20 11/07/20 11/07/20 22:59 06:59 14:59 Other: Weight 97.976 kg In general patient is alert and oriented x 3 in no distress HEENT head normocephalic and atraumatic Neck is supple no JVD no goiter no lymphadenopathy no carotid bruit Chest examination is clear to auscultation no crackles no wheezing Cardiac exam reveals regular heart sounds S1 and S2 no gallops no murmurs Abdomen is soft nontender no organomegaly with normal bowel sounds Extremity exam reveals no edema no cyanosis or clubbing Neurological examination reveals no gross focal deficits Results CBC & Chem 7: 11/07/20 11:04 11/07/20 11:04 Labs: Abnormal Lab Results - Last 24 Hours (Table) 11/06/20 11/06/20 11/06/20 Range/Units 17:56 17:56 17:56 WBC 14.2 H (3.8-10.6) k/uL Hgb 19.2 H* (13.0-17.5) gm/dL Hct 57.6 H* (39.0-53.0) % MCV 101.3 H (80.0-100.0) fL Plt Count 69 L (150-450) k/uL Neutrophils # 12.9 H (1.3-7.7) k/uL Lymphocytes # 0.4 L (1.0-4.8) k/uL PT 14.1 H (9.0-12.0) sec INR 1.4 H (<1.2) Sodium 134 L (137-145) mmol/L BUN 39 H (9-20) mg/dL Glucose 116 H (74-99) mg/dL Magnesium 2.4 H (1.6-2.3) mg/dL AST 224 H (17-59) U/L ALT 572 H (4-49) U/L Creatine Kinase 47 L (55-170) U/L Total Protein 5.5 L (6.3-8.2) g/dL Albumin 2.8 L (3.5-5.0) g/dL Assessment and Plan Plan: Atrial fibrillation with rapid ventricular response Recently diagnosed brain tumor 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
[2020-11-08] MEDS: dexAMETHasone 4 MG TAB PO SCH ×4 (05:59→23:12)
[2020-11-08] MEDS: FUROSEMIDE 20 MG TAB PO SCH (08:07)
[2020-11-08] MEDS: levETIRAcetam 500 MG TAB PO SCH ×2 (08:07→21:53)
[2020-11-08] MEDS: DIGOXIN 125 MCG TAB PO SCH (08:07)
[2020-11-08] MEDS: TAMSULOSIN 0.4 MG CAP.ER.24H PO SCH (08:07)
[2020-11-08] MEDS: MULTIVITAMINS, THERA 1 EACH TAB PO SCH (08:07)
[2020-11-08] MEDS: METOPROLOL TARTRATE 25 MG TAB PO SCH ×2 (08:07→21:53)
[2020-11-08] MEDS: SODIUM CHLORIDE 0.9% 1,000 ML IV SCH (08:08)
[2020-11-08 08:20] LABS: Albumin 2.4 g/dL (3.5-5.0); Potassium 4.7 mmol/L (3.5-5.1); Total Bilirubin 1.5 mg/dL (0.2-1.3)
[2020-11-08 08:43] LABS: Basophils % (A) 0 %; Eosinophils % (A) 0 %; HGB 18.7 gm/dL (13.0-17.5); Lymphocytes # (A) 0.5 k/uL (1.0-4.8); Lymphocytes % (A) 5 %; MCH 34.1 pg (25.0-35.0); MCHC 33.5 g/dL (31.0-37.0); MCV 102.1 fL (80.0-100.0); Macrocytosis Slight; Mean Platelet Volume 10.1; Monocytes # (A) 0.4 k/uL (0-1.0); Monocytes % (A) 4 %; Neutrophils % (A) 91 %; RBC 5.47 m/uL (4.30-5.90); RDW 14.6 % (11.5-15.5)
[2020-11-08 08:54] LABS: HCT 55.9 % (39.0-53.0); Platelet Count 63 k/uL (150-450)
--- NOTE | 2020-11-08 09:54 | P.PN ---
Subjective This is a pleasant 85-year-old male past medical history significant for intracranial mass, chronic persistent atrial fibrillation not on anticoagulation, hypertension and dyslipidemia. He follows in the office with Dr. Chavarria. He is seen and examined sitting up with family at the bedside. He continues to be in atrial fibrillation with mostly controlled ventricular rates. According to the nurse if he gets up he does have some elevated heart rates. Currently maintained on digoxin 125 g every other day, metoprolol 75 mg twice a day and IV fluids. Orthostatic vital signs reviewed, no significant hypotension noted. Baseline blood pressure 147/90. Laboratory data reviewed, WBC 11, hemoglobin 18.7, platelets 63, sodium 137, potassium 4.7, creatinine 1.17. GENERAL: Well-appearing, well-nourished and in no acute distress. NECK: Supple without JVD or thyromegaly. LUNGS: Breath sounds clear to auscultation bilaterally. Respiration equal and unlabored. No wheezes, rales or rhonchi. HEART: Irregular rate and rhythm with systolic ejection murmur at the base, no rubs or gallops. S1 and S2 heard. EXTREMITIES: Normal range of motion, no edema. No clubbing or cyanosis. Peripheral pulses intact. ASSESSMENT Chronic persistent atrial fibrillation with rapid ventricular rate not on retirement anticoagulation secondary to intracranial mass. Recent diagnosis of intracranial mass Thrombocytopenia Transaminitis Chronic systolic heart failure, ejection fraction 30-35% Hypertension Dyslipidemia PLAN Increase metoprolol to 75 mg in the morning and night with an afternoon dose of 50 mg. Add losartan 25 mg daily to his regimen. Ongoing telemetry monitoring. We will continue to follow and make recommendations accordingly. Nurse Practitioner note has been reviewed, I agree with a documented findings and plan of care. Patient was seen and examined. Objective - Vital Signs Vital signs: Vital Signs Temp 97.5 F L 11/08/20 08:15 Pulse 86 11/08/20 08:15 Resp 18 11/08/20 08:15 BP 162/103 11/08/20 08:15 Pulse Ox 95 11/08/20 08:15 Intake & Output 11/07/20 11/08/20 11/08/20 18:59 06:59 18:59 Intake Total 990 Balance 990 Weight 98.8 kg Intake: Intake, IV Titration 750 Amount Sodium Chloride 0.9% 1, 750 000 ml @ 75 mls/hr IV . [id number] GRACE Rx#:[id number] Oral 240 Other: Voiding Method Toilet Urinal # Voids 4 - Labs CBC & Chem 7: 11/08/20 07:45 11/08/20 07:45 Labs: Abnormal Lab Results - Last 24 Hours (Table) 11/07/20 11/07/20 11/08/20 Range/Units 11:04 11:04 07:45 WBC 14.7 H 11.0 H (3.8-10.6) k/uL Hgb 18.5 H 18.7 H (13.0-17.5) gm/dL Hct 54.8 H 55.9 H (39.0-53.0) % MCV 101.3 H 102.1 H (80.0-100.0) fL Plt Count 70 L 63 L (150-450) k/uL Neutrophils # 13.2 H 10.0 H (1.3-7.7) k/uL Lymphocytes # 0.6 L 0.5 L (1.0-4.8) k/uL Carbon Dioxide 31 H (22-30) mmol/L BUN 40 H (9-20) mg/dL Creatinine 1.34 H (0.66-1.25) mg/dL Glucose 138 H (74-99) mg/dL Calcium 8.1 L (8.4-10.2) mg/dL Total Bilirubin (0.2-1.3) mg/dL AST 351 H (17-59) U/L ALT 708 H (4-49) U/L Total Protein 4.9 L (6.3-8.2) g/dL Albumin 2.4 L (3.5-5.0) g/dL 11/08/20 Range/Units 07:45 WBC (3.8-10.6) k/uL Hgb (13.0-17.5) gm/dL Hct (39.0-53.0) % MCV (80.0-100.0) fL Plt Count (150-450) k/uL Neutrophils # (1.3-7.7) k/uL Lymphocytes # (1.0-4.8) k/uL Carbon Dioxide (22-30) mmol/L BUN 37 H (9-20) mg/dL Creatinine (0.66-1.25) mg/dL Glucose 120 H (74-99) mg/dL Calcium 8.0 L (8.4-10.2) mg/dL Total Bilirubin 1.5 H (0.2-1.3) mg/dL AST 255 H (17-59) U/L ALT 788 H (4-49) U/L Total Protein 5.0 L (6.3-8.2) g/dL Albumin 2.4 L (3.5-5.0) g/dL
[2020-11-08] MEDS: LOSARTAN 25 MG TAB PO SCH (10:14)
[2020-11-08] MEDS ORDERED: METOPROLOL TARTRATE 50 MG TAB PO SCH (12:00)
[2020-11-09] MEDS: SODIUM CHLORIDE 0.9% 1,000 ML IV SCH ×2 (05:46→15:24)
[2020-11-09] MEDS: dexAMETHasone 4 MG TAB PO SCH ×4 (06:12→23:20)
[2020-11-09] MEDS ORDERED: DIGOXIN 250 MCG/ML 2 ML AMP IVP ONE (09:15)
--- NOTE | 2020-11-09 09:49 | P.PN ---
Subjective This is a pleasant 85-year-old male past medical history significant for intracranial mass, chronic persistent atrial fibrillation not on anticoagulation, hypertension and dyslipidemia. He follows in the office with Dr. Chavarria. He is seen and examined sitting up with family at the bedside. He continues to be in atrial fibrillation with mostly controlled ventricular rates. According to the nurse if he gets up he does have some elevated heart rates. Currently maintained on digoxin 125 g every other day, metoprolol 75 mg twice a day and IV fluids. Orthostatic vital signs reviewed, no significant hypotension noted. Baseline blood pressure 147/90. Laboratory data reviewed, WBC 11, hemoglobin 18.7, platelets 63, sodium 137, potassium 4.7, creatinine 1.17. 11/09/2020 Patient seen and examined sitting up in bed with family at the bedside. He continues to have variable ventricular rates. Blood pressure 146/75 heart rate 108 afebrile maintaining oxygen saturation on room air. GENERAL: Well-appearing, well-nourished and in no acute distress. NECK: Supple without JVD or thyromegaly. LUNGS: Breath sounds clear to auscultation bilaterally. Respiration equal and unlabored. No wheezes, rales or rhonchi. HEART: Irregular rate and rhythm with systolic ejection murmur at the base, no rubs or gallops. S1 and S2 heard. EXTREMITIES: Normal range of motion, no edema. No clubbing or cyanosis. Peripheral pulses intact. ASSESSMENT Chronic persistent atrial fibrillation with rapid ventricular rate not on senior care anticoagulation secondary to intracranial mass. Recent diagnosis of intracranial mass Thrombocytopenia Transaminitis Chronic systolic heart failure, ejection fraction 30-35% Hypertension Dyslipidemia PLAN Increase metoprolol to 75 mg 3 times a day. Give 1 dose of digoxin 250 g now and continue every other day dosing. Ongoing telemetry monitoring. We will continue to follow and make recommendations accordingly. Nurse Practitioner note has been reviewed, I agree with a documented findings and plan of care. Patient was seen and examined. Objective - Vital Signs Vital signs: Vital Signs Temp 98.1 F 11/09/20 03:46 Pulse 108 H 11/09/20 03:46 Resp 17 11/09/20 03:46 BP 146/75 11/09/20 03:46 Pulse Ox 95 11/09/20 03:46 Intake & Output 09/28/21 09/29/21 09/29/21 18:59 06:59 18:59 Intake Total 1680 480 Balance 1680 480 Weight 99.4 kg Intake: Oral 1680 480 Other: Voiding Method Toilet Toilet Urinal Urinal # Voids 0 1 1 # Bowel Movements 0 1 - Labs CBC & Chem 7: 11/08/20 07:45 11/08/20 07:45
[2020-11-09] MEDS: LOSARTAN 25 MG TAB PO SCH (09:58)
[2020-11-09] MEDS: FUROSEMIDE 20 MG TAB PO SCH (09:58)
[2020-11-09] MEDS: METOPROLOL TARTRATE 25 MG TAB PO SCH ×3 (09:58→19:57)
[2020-11-09] MEDS: TAMSULOSIN 0.4 MG CAP.ER.24H PO SCH (09:59)
[2020-11-09] MEDS: levETIRAcetam 500 MG TAB PO SCH ×2 (09:59→19:57)
[2020-11-09] MEDS: MULTIVITAMINS, THERA 1 EACH TAB PO SCH (09:59)
--- NOTE | 2020-11-09 10:25 | P.PN ---
Subjective Progress Note Date: 11/09/20 James Coello, is an 85 year old male who presented to [facility] emergency room with a chief complaint of worsening shortness of breath, and palpitation He was evaluated in the emergency room vital examination on presentation revealed a temperature of 98.2 respiration 18 blood pressure 142/78 pulse ox 95% on room air his pulse rate was 141, he was in atrial fibrillation, he was given IV metoprolol and IV digoxin in the emergency room, and was admitted to telemetry floor for further evaluation and treatment Laboratory data revealed a white blood count of 14.2 hemoglobin 19.2 platelet count 69 sodium 134 potassium 4.4 chloride 104 BUN 39 creatinine 1.23 glucose level was 116 Testing in the emergency room chest x-ray done in the emergency room revealed cardiomegaly no pulmonary consolidation no heart failure, EKG done in the emergency room revealed atrial fibrillation with rapid ventricular response and left anterior fascicular block and nonspecific ST and T-wave abnormalities. Patient was admitted to telemetry floor for further evaluation and treatment, cardiology consultation was requested. Patient was recently diagnosed with a brain tumor, at that time anticoagulation was discontinued, he was started on Decadron and Keppra. on 11/09/2020 patient is alert and oriented 3.patient still having elevated heart rate despite adjustments on metoprolol yesterday. Per cardiology which will be increased 75 mg 3 times a day and 1 dose of IV digoxin given. Per cardiology continue to monitor over the next 24 hours. At this time patient is resting comfortably in bed. Patient's at bedside. Patient denies chest pain or shortness of breath. Patient denies nausea vomiting or diarrhea. Patient denies any urinary burning or frequency. Objective - Vital Signs Vital signs: Vital Signs Temp 97.6 F 11/09/20 08:00 Pulse 96 11/09/20 08:00 Resp 18 11/09/20 08:00 BP 135/89 11/09/20 08:00 Pulse Ox 94 L 11/09/20 08:00 Intake & Output 11/08/20 11/09/20 11/09/20 18:59 06:59 18:59 Intake Total 1680 480 Balance 1680 480 Weight 99.4 kg Intake: Oral 1680 480 Other: Voiding Method Toilet Toilet Urinal Urinal # Voids 0 1 1 # Bowel Movements 0 1 - Exam Head normocephalic Neck supple Lungs clear to auscultation bilaterally no wheezing or crackles Heart regular rate and rhythm S1-S2, no rub or gallop Abdomen is soft nontender nondistended positive bowel sounds no hepatosplenomegaly Extremities no edema Neuro alert and orientated to 3 - Labs CBC & Chem 7: 11/08/20 07:45 11/08/20 07:45 Assessment and Plan Plan: Atrial fibrillation with rapid ventricular response Recently diagnosed brain tumor Leukocytosis likely related to spheroid use patient is maintained on Decadron Underlying history of hypertension Underlying history of osteoarthritis Underlying history of benign prostatic hypertrophy At this time patient is admitted to telemetry floor elevated liver enzymes. Repeat labs have been ordered Cardiology services following Metroprolol increased and IV digoxin will be given per cardiology Continue to monitor for the next 24 hours per cardiology
[2020-11-09 11:54] VITALS: RESP 16
[2020-11-09] MEDS ORDERED: METOPROLOL TARTRATE 50 MG TAB PO SCH (12:00)
[2020-11-09] MEDS ORDERED: METOPROLOL TARTRATE 25 MG TAB PO SCH (12:00)
[2020-11-10] MEDS: dexAMETHasone 4 MG TAB PO SCH ×3 (06:35→17:32)
[2020-11-10] MEDS: SODIUM CHLORIDE 0.9% 1,000 ML IV SCH ×2 (07:33→17:32)
[2020-11-10 08:27] LABS: Basophils % (A) 0 %; Eosinophils % (A) 0 %; Lymphocytes # (A) 0.4 k/uL (1.0-4.8); Lymphocytes % (A) 3 %; MCH 34.1 pg (25.0-35.0); MCV 100.4 fL (80.0-100.0); Macrocytosis Slight; Mean Platelet Volume 10.4; Monocytes # (A) 0.5 k/uL (0-1.0); Monocytes % (A) 4 %; Neutrophils % (A) 93 %; RBC 5.79 m/uL (4.30-5.90); RDW 14.3 % (11.5-15.5); WBC 12.9 k/uL (3.8-10.6)
[2020-11-10 08:35] LABS: HGB 19.7 gm/dL (13.0-17.5)
[2020-11-10 08:36] LABS: HCT 58.1 % (39.0-53.0); Platelet Count 68 k/uL (150-450)
[2020-11-10 08:44] VITALS: TEMP 98.2
[2020-11-10] MEDS: FUROSEMIDE 20 MG TAB PO SCH (08:45)
[2020-11-10] MEDS: LOSARTAN 25 MG TAB PO SCH (08:45)
[2020-11-10] MEDS: DIGOXIN 125 MCG TAB PO SCH (08:45)
[2020-11-10] MEDS: TAMSULOSIN 0.4 MG CAP.ER.24H PO SCH (08:46)
[2020-11-10] MEDS: levETIRAcetam 500 MG TAB PO SCH (08:46)
[2020-11-10] MEDS: METOPROLOL TARTRATE 25 MG TAB PO SCH ×2 (08:46→15:52)
[2020-11-10] MEDS: MULTIVITAMINS, THERA 1 EACH TAB PO SCH (08:46)
[2020-11-10 08:52] LABS: Albumin 2.6 g/dL (3.5-5.0); Calcium 8.4 mg/dL (8.4-10.2); Potassium 4.4 mmol/L (3.5-5.1); Total Bilirubin 1.6 mg/dL (0.2-1.3); Total Protein 5.1 g/dL (6.3-8.2)
--- NOTE | 2020-11-10 12:03 | P.PN ---
Subjective This is a pleasant 85-year-old male past medical history significant for intracranial mass, chronic persistent atrial fibrillation not on anticoagulation, hypertension and dyslipidemia. He follows in the office with Dr. Chavarria. He is seen and examined sitting up with family at the bedside. He continues to be in atrial fibrillation with mostly controlled ventricular rates. According to the nurse if he gets up he does have some elevated heart rates. Currently maintained on digoxin 125 g every other day, metoprolol 75 mg twice a day and IV fluids. Orthostatic vital signs reviewed, no significant hypotension noted. Baseline blood pressure 147/90. Laboratory data reviewed, WBC 11, hemoglobin 18.7, platelets 63, sodium 137, potassium 4.7, creatinine 1.17. 11/10/2020 Patient seen and examined sitting up in no acute distress with at the bedside. His heart rates are better controlled and the previous 24 hours currently 100 with a blood pressure 120/62. Maintained on digoxin 125 g every other day, Lopressor 75 mg 3 times a day and losartan 25 mg daily. GENERAL: Well-appearing, well-nourished and in no acute distress. NECK: Supple without JVD or thyromegaly. LUNGS: Breath sounds clear to auscultation bilaterally. Respiration equal and unlabored. No wheezes, rales or rhonchi. HEART: Irregular rate and rhythm with systolic ejection murmur at the base, no rubs or gallops. S1 and S2 heard. EXTREMITIES: Normal range of motion, no edema. No clubbing or cyanosis. Peripheral pulses intact. 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 Recent diagnosis of intracranial mass Thrombocytopenia Transaminitis Chronic systolic heart failure, ejection fraction 30-35% Hypertension Dyslipidemia PLAN Clinically stable from a cardiac perspective on current medical regimen. Follow-up in the office with Dr. Chavarria upon discharge. Nurse Practitioner note has been reviewed, I agree with a documented findings and plan of care. Patient was seen and examined. Objective - Vital Signs Vital signs: Vital Signs Temp 98.2 F 11/10/20 08:00 Pulse 86 11/10/20 11:52 Resp 16 11/10/20 11:52 BP 132/91 11/10/20 11:52 Pulse Ox 94 L 11/10/20 11:52 Intake & Output 11/09/20 11/10/20 11/10/20 18:59 06:59 18:59 Intake Total 1440 420 Balance 1440 420 Weight 98.5 kg Intake: Oral 1440 420 Other: Voiding Method Toilet Toilet Toilet Urinal Urinal Urinal # Voids 1 - Labs CBC & Chem 7: 11/10/20 08:01 11/10/20 08:01 Labs: Abnormal Lab Results - Last 24 Hours (Table) 11/10/20 11/10/20 Range/Units 08:01 08:01 WBC 12.9 H (3.8-10.6) k/uL Hgb 19.7 H* (13.0-17.5) gm/dL Hct 58.1 H* (39.0-53.0) % MCV 100.4 H (80.0-100.0) fL Plt Count 68 L (150-450) k/uL Neutrophils # 12.0 H (1.3-7.7) k/uL Lymphocytes # 0.4 L (1.0-4.8) k/uL Sodium 136 L (137-145) mmol/L BUN 37 H (9-20) mg/dL Glucose 117 H (74-99) mg/dL Total Bilirubin 1.6 H (0.2-1.3) mg/dL AST 110 H (17-59) U/L ALT 575 H (4-49) U/L Total Protein 5.1 L (6.3-8.2) g/dL Albumin 2.6 L (3.5-5.0) g/dL
[2020-11-10 16:13] VITALS: BP 128/62; PULSE 96
--- NOTE | 2020-11-10 17:48 | P.PN ---
Subjective Progress Note Date: 11/08/20 James Coello, is an 85 year old male who presented to [facility] emergency room with a chief complaint of worsening shortness of breath, and palpitation He was evaluated in the emergency room vital examination on presentation revealed a temperature of 98.2 respiration 18 blood pressure 142/78 pulse ox 95% on room air his pulse rate was 141, he was in atrial fibrillation, he was given IV metoprolol and IV digoxin in the emergency room, and was admitted to telemetry floor for further evaluation and treatment Laboratory data revealed a white blood count of 14.2 hemoglobin 19.2 platelet count 69 sodium 134 potassium 4.4 chloride 104 BUN 39 creatinine 1.23 glucose level was 116 Testing in the emergency room chest x-ray done in the emergency room revealed cardiomegaly no pulmonary consolidation no heart failure, EKG done in the emergency room revealed atrial fibrillation with rapid ventricular response and left anterior fascicular block and nonspecific ST and T-wave abnormalities. Patient was admitted to telemetry floor for further evaluation and treatment, cardiology consultation was requested. Patient was recently diagnosed with a brain tumor, at that time anticoagulation was discontinued, he was started on Decadron and Keppra. On 11/08/2020 Patient was seen and examined on the medical floor, he is alert and oriented x 3 in no distress, he denies any complaints there is no fever or chills no headache or dizziness no chest pain no shortness of breath no palpitation no cough no nausea or vomiting no abdominal pain no diarrhea no blood in the stools no burning with urination no frequency or urgency and no hematuria, there is no weakness or numbness in any of the extremities no change in vision speech or gait. Patient is still having tachycardia and his cardiac m edications are being adjusted by cardiology otherwise he denies any complaints Objective - Vital Signs Vital signs: Vital Signs Temp 97.5 F L 11/08/20 08:15 Pulse 86 11/08/20 08:15 Resp 18 11/08/20 08:15 BP 162/103 11/08/20 08:15 Pulse Ox 95 11/08/20 08:15 Intake & Output 11/07/20 11/08/20 11/08/20 18:59 06:59 18:59 Intake Total 990 Balance 990 Weight 98.8 kg Intake: Intake, IV Titration 750 Amount Sodium Chloride 0.9% 1, 750 000 ml @ 75 mls/hr IV . [id number] [facility] Rx#:[id number] Oral 240 Other: Voiding Method Toilet Urinal # Voids 4 - Exam In general patient is alert and oriented x 3 in no distress HEENT head normocephalic and atraumatic Neck is supple no JVD no goiter no lymphadenopathy no carotid bruit Chest examination is clear to auscultation no crackles no wheezing Cardiac exam reveals regular heart sounds S1 and S2 no gallops no murmurs Abdomen is soft nontender no organomegaly with normal bowel sounds Extremity exam reveals no edema no cyanosis or clubbing Neurological examination reveals no gross focal deficits - Labs CBC & Chem 7: 11/10/20 08:01 11/10/20 08:01 Labs: Abnormal Lab Results - Last 24 Hours (Table) 11/07/20 11/07/20 11/08/20 Range/Units 11:04 11:04 07:45 WBC 14.7 H 11.0 H (3.8-10.6) k/uL Hgb 18.5 H 18.7 H (13.0-17.5) gm/dL Hct 54.8 H 55.9 H (39.0-53.0) % MCV 101.3 H 102.1 H (80.0-100.0) fL Plt Count 70 L 63 L (150-450) k/uL Neutrophils # 13.2 H 10.0 H (1.3-7.7) k/uL Lymphocytes # 0.6 L 0.5 L (1.0-4.8) k/uL Carbon Dioxide 31 H (22-30) mmol/L BUN 40 H (9-20) mg/dL Creatinine 1.34 H (0.66-1.25) mg/dL Glucose 138 H (74-99) mg/dL Calcium 8.1 L (8.4-10.2) mg/dL Total Bilirubin (0.2-1.3) mg/dL AST 351 H (17-59) U/L ALT 708 H (4-49) U/L Total Protein 4.9 L (6.3-8.2) g/dL Albumin 2.4 L (3.5-5.0) g/dL 11/08/20 Range/Units 07:45 WBC (3.8-10.6) k/uL Hgb (13.0-17.5) gm/dL Hct (39.0-53.0) % MCV (80.0-100.0) fL Plt Count (150-450) k/uL Neutrophils # (1.3-7.7) k/uL Lymphocytes # (1.0-4.8) k/uL Carbon Dioxide (22-30) mmol/L BUN 37 H (9-20) mg/dL Creatinine (0.66-1.25) mg/dL Glucose 120 H (74-99) mg/dL Calcium 8.0 L (8.4-10.2) mg/dL Total Bilirubin 1.5 H (0.2-1.3) mg/dL AST 255 H (17-59) U/L ALT 788 H (4-49) U/L Total Protein 5.0 L (6.3-8.2) g/dL Albumin 2.4 L (3.5-5.0) g/dL Assessment and Plan Plan: Atrial fibrillation with rapid ventricular response Recently diagnosed brain tumor 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
== END 2020-11-10 19:02 | disposition home or self-care (01) | DRG 309 ==
LOC: EC 17:16 → 3SCARD 20:39 → OBSVTOIN 11-09 13:52
PROVIDERS: ADMIT Internal Medicine; ATTEND Internal Medicine
DX: I48.19 Other persistent atrial fibrillation (principal); I50.22 Chronic systolic (congestive) heart failure; I11.0 Hypertensive heart disease with heart failure; T38.0X5A Adverse effect of glucocorticoids and synthetic analogues, initial encounter; E11.9 Type 2 diabetes mellitus without complications; N40.0 Benign prostatic hyperplasia without lower urinary tract symptoms; D69.6 Thrombocytopenia, unspecified; R74.01 Elevation of levels of liver transaminase levels; I08.3 Combined rheumatic disorders of mitral, aortic and tricuspid valves; I44.4 Left anterior fascicular block; E78.5 Hyperlipidemia, unspecified; E86.0 Dehydration; F32.9 Major depressive disorder, single episode, unspecified; D72.829 Elevated white blood cell count, unspecified; Z20.822 Contact with and (suspected) exposure to COVID-19; Z96.1 Presence of intraocular lens; Z79.899 Other long term (current) drug therapy; Z85.828 Personal history of other malignant neoplasm of skin; Z87.442 Personal history of urinary calculi; Z98.41 Cataract extraction status, right eye; Z98.42 Cataract extraction status, left eye; Z87.19 Personal history of other diseases of the digestive system; X58.XXXA Exposure to other specified factors, initial encounter
CPT/HCPCS: 36415; 71046; 80053; 82550; 83735; 84443; 84484; 85025; 85610; 85730; 87635; 93005; 94760; 96361; 96374; 99285